=== PATIENT | female | born 1965 | race Hispanic/Latino ===

== ENCOUNTER 2016-08-27 18:00 | Emergency (ER) | payer OTHER ==
[~2016-08-27 18:00] MED LIST: Sodium Chloride 0.9% 1,000 ML BAG ONE; Sodium Chloride 0.9% 500 ML BAG ONE
[2016-08-27] MEDS ORDERED: Acetaminophen 500 MG TAB ONE ×2 (18:13→19:09)
[2016-08-27 18:35] LABS: Bilirubin Negative (Negative); Blood, Urine Negative (Negative); Clarity Hazy (Clear); Glucose, Urine (Dipstick) Negative (Negative); Leukocyte Negative (Negative); Nitrite Negative (Negative); Protein, Urine (Dipstick) 30 mg/dL (Neg-Trace); pH, Urine 8.5 (5.0-9.0)
[2016-08-27 18:36] LABS: Bacteria/HPF 1+ HPF (None Seen); RBC/HPF 0-3 HPF (0-3); WBC/HPF 0-3 HPF (0-3); Yeast-All Forms Rare HPF (None Seen)
[2016-08-27] MEDS ORDERED: Bupivacaine PF 0.5% 30 ML VIAL ONE (18:43)
[2016-08-27] MEDS ORDERED: Dexamethasone 10 MG/ML VIAL ONE (19:09)
[2016-08-27 19:20] LABS: #Lymphocytes 0.6 thou/uL (1.20-3.40); #Monocytes 0.5 thou/uL (0.11-0.59); #Neutrophils 4.2 thou/uL (1.40-6.50); %Basophils 0.8 % (0.0-1.0); %Eosinophils 0.3 % (0.0-10.0); %Lymphocytes 11.8 % (21.0-51.0); %Monocytes 9.2 % (0.0-10.0); %Neutrophils 77.9 % (42.0-75.0); Hemoglobin 14.2 g/dL (12.0-16.0); Mean Corpuscular HGB CONC 33.6 g/dL (32.0-36.0); Mean Corpuscular Hemoglobin 28.8 pg (27.0-31.0); Mean Corpuscular Volume 85.8 fl (81.0-99.0); Platelet Count 182 thou/uL (130-400); RBC Distribution Width 12.3 % (11.5-14.5); Red Blood Cell (RBC) Count 4.92 mill/uL (4.20-5.40); White Blood Cell (WBC) Count 5.3 thou/uL (4.8-10.8)
[2016-08-27 19:33] LABS: ALT (SGPT) 23 U/L (0-55); AST (SGOT) 18 U/L (5-34); Albumin 4.1 g/dL (3.5-5.0); Alkaline Phosphatase 95 U/L (40-150); Anion Gap 17 mmol/L (10-20); BUN (Urea Nitrogen) 9 mg/dL (7.0-18.7); Bilirubin, Total 0.5 mg/dL (0.2-1.2); Calc. Creatinine Clearance 0 mL/min (70-130); Calcium 9.3 mg/dL (7.8-10.44); Carbon Dioxide 23 mmol/L (22-29); Chloride 100 mmol/L (98-107); Estimated GFR-MDRD 81; Globulin 3.4 g/dL (2.4-3.5); Glucose 93 mg/dL (70-105); Potassium 3.9 mmol/L (3.5-5.1); Protein, Total 7.5 g/dL (6.0-8.3); Sodium 136 mmol/L (136-145)
[2016-08-27 19:43] LABS: BHCG - Serum NEGATIVE (NEGATIVE); Pregs Control Background? CLEAR/WHITE (CLR/WHITE); Pregs Control Bar Appear? YES (CONTROL BAR)
[2016-08-27] MEDS ORDERED: Promethazine HCl 25 MG/ML VIAL ONE (20:05)
[2016-08-27] MEDS ORDERED: cefTRIAXone\\ROCEPHIN 2 GM VIAL ONE (20:08)
[2016-08-27] MEDS ORDERED: Acyclovir 200 mg Capsule ONE (20:22)
--- NOTE | 2016-08-27 20:31 | PICIS ---
[facility] EMERGENCY RECORD TRIAGE (FriAug 27, 2016 18:12 MDEB) PATIENT: NAME: Cherrie Alejandre, AGE: 51, GENDER: female, : Sat 1965, TIME OF GREET: FriAug 27, 2016 18:01, PREFERRED LANGUAGE: Citizen Of [place], RACE: or , ETHNICITY: or , FALL RISK: NO, ECODE BILLING MAP: [facility], SSN: [id number], Zip Code: [address], KG WEIGHT: 92.99, PHONE: , , , PERSON ID: [id number], PCP: MD GUZMAN IMELDA. (FriAug 27, 2016 18:12 MDEB) TRIAGE NOTES: N/V/D FEVER HEADACHE. (FriAug 27, 2016 18:12 MDEB) COMPLAINT: ABDOMINAL PAIN,VOMITING. (FriAug 27, 2016 18:12 MDEB) ADMISSION: URGENCY: 3 Urgent, ADMISSION SOURCE: Home, TRANSPORT: Walk-in, BED: TRIAGE. (FriAug 27, 2016 18:12 MDEB) IMMUNIZATIONS: Flu vaccine up to date, Tetanus immunization up to date. (FriAug 27, 2016 18:12 MDEB) TRIAGE SCREENING: Patient denies suicidal ideation, Patient denies presence of domestic violence. (FriAug 27, 2016 18:12 MDEB) PROVIDERS: TRIAGE NURSE: Airam Good RN. (FriAug 27, 2016 18:12 MDEB) VITAL SIGNS: BP 138/85, Pulse 111, Resp 20, Temp 101.8, (Tympanic), Pain 9, O2 Sat 98, on Room Air, Time 08/27/2016 18:11. (18:11 MDEB) PREVIOUS VISIT ALLERGIES: No Known Drug Allergy. (FriAug 27, 2016 18:12 MDEB) KNOWN ALLERGIES ADVERSE RX TO ULTRAM VOMITS (Unconfirmed) ALLERGIES: (Unconfirmed) FOOD ALLERGIES: (Unconfirmed) LATEX ALLERGY? (Unconfirmed) No Known Allergies (Unconfirmed) No Known Drug Allergies No Known Drug Allergy (Unconfirmed) CURRENT MEDICATIONS No recorded medications VITAL SIGNS VITAL SIGNS: BP: 138/85, Pulse: 111, Resp: 20, Temp: 101.8 (Tympanic), Pain: 9, O2 sat: 98 on Room Air, Time: 08/27/2016 18:11. (18:11 MDEB) BP: 132/82, Pulse: 87, Resp: 22, Temp: 99.3, Pain: 0, O2 sat: 97 on RA, Time: 08/27/2016 20:50. (20:50 MDEB) BP: 116/71, Pulse: 83, Resp: 20, Temp: 99.3, Pain: 0, O2 sat: 97 on RA, Time: 08/27/2016 21:15. (21:15 MDEB) NURSING PROCEDURE: COMMUNICATIONS COMMUNICATIONS: Other notification, Name MARTINEZ - TRANSFER &a-1R&a+25V*p+0X*q8380M*c202B*c15G*c2P*p-0X&a-25V&a+1R Name: Cherrie Alejandre : 1965 F51 MedRec: [id number] AcctNum: [id number] Prepared: Chey Aug 27, 2016 22:03 by Interface Page 1 of 14 pMD [facility] EMERGENCY [facility]ORD [facility], contacted at [phone], Reason for notification TRANSFER. (20:10 [facility]) Ambulance service, contacted at [phone], Name of provider CONSTANTINO, Person contacted [facility], requested for transfer to another facility, by advanced life support transport, Estimated time of arrival 30 TO 40 MIN, SENDING TRUCK FROM [facility]. (20:23 [facility]) Notes: TRANSFER ACCEPTANCE FROM DR. RAMIRES AND DARRELL HARRIS. (20:20 [place]) NURSING PROCEDURE: LUMBAR PUNCTURE (20:06 ABUS) PATIENT IDENTIFIER: Patient actively involved in identification process, Patient's identity verified by patient stating name, Patient's identity verified by hospital ID bracelet. TIMEOUT: Prior to procedure, correct patient verified by, hospital identification bracelet, Correct procedure verified, Correct site verified, Correct equipment utilized, Physician performing procedure Dr. Worley. LUMBAR PUNCTURE: Lumbar puncture indicated for severe headache, Lumbar puncture indicated to rule out meningitis, Lumbar puncture indicated to rule out bleed, Lumbar puncture performed, by Dr. Worley, cerebral spinal fluid obtained in two attempts, Approximate amount of fluid removed (ml) 6. FOLLOW-UP: After procedure, distal motor function intact, After procedure, distal sensation intact. NOTES: Patient tolerated procedure well. NURSING PROCEDURE: NURSE NOTES (20:50 MDEB) NURSES NOTES: Notes: PT RESTING WITH EYES CLOSED MAKING SONOROUS NOISE. VITAL SIGNS: BP: 132, / 82, Pulse: 87, Resp: 22, Temp: 99.3, Pain: 0, O2 sat: 97, on: RA. NURSING PROCEDURE: TRANSFER (21:15 MDEB) TRANSFER: Reason for transfer need for specialized care, Diagnosis: R/O MENINGITIS NAUSEA WITH VOMTING, Accepting institution: [facility], Accepting physician: IKE, Referring physician: WENDY, Transported by urgent ambulance, accompanied by emergency medical services personnel, Report called to receiving facility, RADHA ARAYA, Provided opportunity to answer questions, Summary of Care printed, Copy of patient record prepared for receiving facility, Copy of diagnostic studies, Status of patient's valuables documented on chart, Medication reconciliation form prepared and sent to receiving facility, Family member contacted, DAUGHTER HERE AT TIME OF TRANSFER. BELONGINGS: Belongings remain with patient, Valuables remain with patient. NOTES: Emotional support needed and given, Patient tolerated procedure well. VITAL SIGNS: BP: 116, / 71, Pulse: 83, Resp: 20, Temp: 99.3, Pain: 0, O2 sat: 97, on: RA. &a-1R&a+25V*p+0X*i9752F*c202B*c15G*c2P*p-0X&a-25V&a+1R Name: Cherrie Alejandre : 1965 F51 MedRec: [id number] AcctNum: [id number] Prepared: FriAug 27, 2016 22:03 by Interface Page 2 of 14 pMD [facility] EMERGENCY RECORD ORDER DETAILS Order Name: CBC with Differential, Status: Active, Time: 18:34 08/27/2016, User: DOROTA, - Ordered for: MD Worley Anthony, - Entered by: MD Worley Anthony - Chey Aug 27, 2016 18:34, - Quantity: 1, Order Name: Cell Count w/ Diff, Add set, Status: Active, Time: 18:34 08/27/2016, User: ABUS, - Ordered for: MD Worley Anthony, - Entered by: MD Worley Anthony - Tue Aug 27, 2016 18:34, - Quantity: 1, Order Name: Cell Count w/ Differential, Status: Active, Time: 18:34 08/27/2016, User: ABUS, - Ordered for: MD Worley Anthony, - Entered by: MD Worley Anthony - Tue Aug 27, 2016 18:34, - Quantity: 1, Order Name: chart element #1, Status: Active, Time: 20:06 08/27/2016, User: System, - Ordered for: MD Worley Anthony, - Entered by: MD Worley Anthony - Tue Aug 27, 2016 20:06, - Quantity: 1, Order Name: chart element #4, Status: Active, Time: 20:06 08/27/2016, User: System, - Ordered for: MD Worley Anthony, - Entered by: MD Worley Anthony - Tue Aug 27, 2016 20:06, - Quantity: 1, Order Name: Comprehensive Metabolic Panel, Status: Active, Time: 18:34 08/27/2016, User: ABUS, - Ordered for: MD Worley Anthony, - Entered by: MD Worley Anthony - Tue Aug 27, 2016 18:34, - Quantity: 1, Order Name: CSF, Chem Profile (Glu & TPro), Status: Active, Time: 18:34 08/27/2016, User: ABUS, - Ordered for: MD Worley Anthony, - Entered by: MD Worley Anthony - Tue Aug 27, 2016 18:34, - Quantity: 1, Order Name: CT Brain WO Con, Status: Active, Time: 18:34 08/27/2016, User: ABUS, - Ordered for: MD Worley Anthony, - Entered by: MD Worley Anthony - Tue Aug 27, 2016 18:34, - Quantity: 1, Order Name: Culture & GS, Body Fluid, Status: Active, Time: 18:34 08/27/2016, User: ABUS, - Ordered for: MD Worley Anthony, - Entered by: MD Worley Anthony - Tue Aug 27, 2016 18:34, - Quantity: 1, Order Name: Influenza A&B Ag Screen, Status: Active, Time: 18:19 08/27/2016, User: BOY, - Ordered for: MD Worley Anthony, &a-1R&a+25V*p+0X*q6782D*c202B*c15G*c2P*p-0X&a-25V&a+1R Name: Cherrie Alejandre : 1965 F51 MedRec: [id number] AcctNum: [id number] Prepared: FriAug 27, 2016 22:03 by Interface Page 3 of 14 D [facility] EMERGENCY RECORD - Entered by: RADHA Good, Airam Guerrier Aug 27, 2016 18:19, - Quantity: 1, Order Name: Test, Serum (BHCG), Status: Active, Time: 18:35 08/27/2016, User: DOROTA, - Ordered for: MD Worley Anthony, - Entered by: MD Worley Anthony - Tue Aug 27, 2016 18:35, - Quantity: 1, Order Name: SALINE LOCK, Status: Done, Time: 19:08 08/27/2016, User: BOY, - Ordered for: MD Worley Anthony, - Entered by: MD Worley Anthony - Tue Aug 27, 2016 18:34, - Quantity: 1, Order Name: Urinalysis w/ Rflx Microscopic, Status: Active, Time: 18:19 08/27/2016, User: BOY, - Ordered for: MD Worley Anthony, - Entered by: RADHA Good, Airam Guerrier Aug 27, 2016 18:19, - Quantity: 1. MEDICATION ADMINISTRATION SUMMARY Drug Name: acyclovir sodium, Dose Ordered: 1 mg, Route: IV Piggy Back, Status: Canceled, Time: 20:53 08/27/2016, Drug Name: vancomycin intravenous, Dose Ordered: 2 g, Route: IV Piggy Back, Status: Given, Time: 20:46 08/27/2016, Drug Name: *acyclovir oral, Dose Ordered: 1 g, Route: Oral, Status: Given, Time: 20:20 08/27/2016, Drug Name: morphine (PF) injection, Dose Ordered: 4 mg, Route: IV Push, Status: Given, Time: 20:15 08/27/2016, Drug Name: Rocephin intravenous, Dose Ordered: 2 g, Route: IV Push, Status: Given, Time: 20:10 08/27/2016, Drug Name: *sodium chloride 0.9 % intravenous, Dose Ordered: 1 L, Route: IV Fluid Infusion, Status: Given, Time: 20:06 08/27/2016, Drug Name: promethazine injection, Dose Ordered: 25 mg, Route: IV Piggy Back, Status: Given, Time: 20:05 08/27/2016, Drug Name: acetaminophen oral, Dose Ordered: 1000 mg, Route: Oral, Status: Given, Time: 19:10 08/27/2016, Drug Name: dexamethasone sodium phosphate intraveno, Dose Ordered: 10 mg, Route: IV Push, Status: Given, Time: 19:10 08/27/2016, Drug Name: lidocaine (PF) injection, Dose Ordered: 10 mL, Route: Intradermal, Status: Given, Time: 18:40 08/27/2016, *Additional information available in notes, Detailed record available in Medication Service section. MEDICATION SERVICE acetaminophen oral: Order: acetaminophen oral (acetaminophen) - Dose: 1000 mg : Oral Schedule: Now Ordered by: Girish Worley MD Entered by: Girish Worley MD FriAug 27, 2016 18:41 , Acknowledged by: Airam Good RN FriAug 27, 2016 19:08 &a-1R&a+25V*p+0X*s8244G*c202B*c15G*c2P*p-0X&a-25V&a+1R Name: Cherrie Alejandre : 1965 F51 MedRec: [id number] AcctNum: [id number] Prepared: FriAug 27, 2016 22:03 by Interface Page 4 of 14 pMD [facility] EMERGENCY RECORD Documented as given by: Airam Good RN FriAug 27, 2016 19:10 Patient, Medication, Dose, Route and Time verified prior to administration. Amount given: 1000 MG, Site: Medication administered P.O., Correct patient, time, route, dose and medication confirmed prior to administration, Patient advised of actions and side-effects prior to administration, Allergies confirmed and medications reviewed prior to administration, Patient in position of comfort, Side rails up, Cart in lowest position, Family at bedside. acyclovir oral: Order: acyclovir oral (acyclovir) - Dose: 1 g : Oral Schedule: Now Notes: give oral since we do not have IV Ordered by: Girish Worley MD Entered by: Girish Worley MD FriAug 27, 2016 20:47 Documented as given by: Airam Good RN FriAug 27, 2016 20:20 Patient, Medication, Dose, Route and Time verified prior to administration. Amount given: 1 GR, Site: Medication administered P.O., Correct patient, time, route, dose and medication confirmed prior to administration, Patient advised of actions and side-effects prior to administration, Allergies confirmed and medications reviewed prior to administration, Patient in position of comfort, Side rails up, Cart in lowest position, Family at bedside. acyclovir sodium: Order: acyclovir sodium - Dose: 1 mg : IV Piggy Back Schedule: Now Ordered by: Girish Worley MD Entered by: Girish Worley MD FriAug 27, 2016 18:40 . (CANCELED) acyclovir sodium: Originally ordered FriAug 27, 2016 18:40 Cancel reason: Change in medication plan:NOT AVAILABLE - ORDERED PO. (20:53 MDEB) dexamethasone sodium phosphate intravenous: Order: dexamethasone sodium phosphate intravenous (dexamethasone sod phosphate) - Dose: 10 mg : IV Push Schedule: Now Ordered by: Girish Worley MD Entered by: Girish Worley MD FriAug 27, 2016 18:40 , Acknowledged by: Airam Good RN FriAug 27, 2016 19:08 Documented as given by: Airma Good RN FriAug 27, 2016 19:10 Patient, Medication, Dose, Route and Time verified prior to administration. Amount given: 10 MG, IV SITE #1 IVP, initial medication, Slowly, Catheter placement confirmed via flush prior to administration, IV site without signs or symptoms of infiltration during medication administration, No swelling during administration, No drainage during administration, IV flushed after administration, Correct patient, time, route, dose and medication confirmed prior to administration, Patient advised of actions and side-effects prior to administration, &a-1R&a+25V*p+0X*w7763U*c202B*c15G*c2P*p-0X&a-25V&a+1R Name: Cherrie Alejandre : 1965 F51 MedRec: [id number] AcctNum: [id number] Prepared: FriAug 27, 2016 22:03 by Interface Page 5 of 14 pMD [facility] EMERGENCY RECORD Allergies confirmed and medications reviewed prior to administration, Patient in position of comfort, Side rails up, Cart in lowest position, Family at bedside. lidocaine (PF) injection: Order: lidocaine (PF) injection (lidocaine HCl/preservative free) - Dose: 10 mL : Intradermal Schedule: Now Ordered by: Girish Worley MD Entered by: Girish Worley MD FriAug 27, 2016 18:36 Documented as given by: Airam Good RN FriAug 27, 2016 18:40 Patient, Medication, Dose, Route and Time verified prior to administration. Amount given: 10 ML, Correct patient, time, route, dose and medication confirmed prior to administration, Patient advised of actions and side-effects prior to administration, Allergies confirmed and medications reviewed prior to administration, Administered by DR WORLEY, Patient in position of comfort, Side rails up, Cart in lowest position. morphine (PF) injection: Order: morphine (PF) injection (morphine sulfate/preservative free) - Dose: 4 mg : IV Push Schedule: Now Ordered by: Girish Worley MD Entered by: Girish Worley MD FriAug 27, 2016 20:49 , Acknowledged by: Jose Cedeno RN FriAug 27, 2016 20:59 Documented as given by: Jose Cedeno RN FriAug 27, 2016 20:15 Patient, Medication, Dose, Route and Time verified prior to administration. Amount given: 4mg, IV SITE #1 IVP, initial medication, Slowly, Awake and alert- acceptable, Catheter placement confirmed via flush prior to administration, IV site without signs or symptoms of infiltration during medication administration, No swelling during administration, No drainage during administration, IV flushed after administration, Correct patient, time, route, dose and medication confirmed prior to administration, Patient advised of actions and side-effects prior to administration, Allergies confirmed and medications reviewed prior to administration, Patient in position of comfort, Side rails up, Cart in lowest position, Family at bedside. promethazine injection: Order: promethazine injection (promethazine HCl) - Dose: 25 mg : IV Piggy Back Schedule: Now Ordered by: Girish Worley MD Entered by: Girish Worley MD FriAug 27, 2016 20:05 , Acknowledged by: Jose Cedeno RN FriAug 27, 2016 20:14 Documented as given by: Jose Cedeno RN FriAug 27, 2016 20:05 Patient, Medication, Dose, Route and Time verified prior to administration. Amount given: 25mg, IV SITE #1 IVPB or drip, initial infusion, IVPB mixed in: 1000ml, Fluid: 0.9NS, via primary tubing, at 1000 ml/hr, Awake and alert- acceptable, Catheter placement confirmed via flush prior to administration, IV site without signs or symptoms of &a-1R&a+25V*p+0X*d0197W*c202B*c15G*c2P*p-0X&a-25V&a+1R Name: Cherrie Alejandre : 1965 F51 MedRec: [id number] AcctNum: [id number] Prepared: FriAug 27, 2016 22:03 by Interface Page 6 of 14 pMD [facility] EMERGENCY RECORD infiltration during medication administration, No swelling during administration, No drainage during administration, IV flushed after administration, Correct patient, time, route, dose and medication confirmed prior to administration, Patient advised of actions and side-effects prior to administration, Allergies confirmed and medications reviewed prior to administration, Patient in position of comfort, Side rails up, Cart in lowest position, Family at bedside. Rocephin intravenous: Order: Rocephin intravenous (ceftriaxone sodium) - Dose: 2 g : IV Push Schedule: Now Ordered by: Girish Worley MD Entered by: Girish Worley MD FriAug 27, 2016 18:38 , Acknowledged by: Airam Good RN FriAug 27, 2016 20:07 Documented as given by: Airam Good RN FriAug 27, 2016 20:10 Patient, Medication, Dose, Route and Time verified prior to administration. Amount given: 2 G, IV SITE #1 IVP, initial medication, Slowly, Catheter placement confirmed via flush prior to administration, IV site without signs or symptoms of infiltration during medication administration, No swelling during administration, No drainage during administration, IV flushed after administration, Correct patient, time, route, dose and medication confirmed prior to administration, Patient advised of actions and side-effects prior to administration, Allergies confirmed and medications reviewed prior to administration, Patient in position of comfort, Side rails up, Cart in lowest position, Family at bedside. sodium chloride 0.9 % intravenous: Order: sodium chloride 0.9 % intravenous (0.9 % sodium chloride) - Dose: 1 L : IV Fluid Infusion Schedule: Now Notes: (Bolus) Ordered by: Girish Worley MD Entered by: Girish Worley MD FriAug 27, 2016 20:04 Documented as given by: Airam Good RN FriAug 27, 2016 20:06 Patient, Medication, Dose, Route and Time verified prior to administration. Amount given: 1 L, IV SITE #1 IV fluids established for hydration, IV SITE #1 into right hand, IV SITE #1 bolus of 1000 ml established, IV SITE #1 Rate of bolus, wide open, via primary tubing, Catheter placement confirmed via flush prior to administration, IV site without signs or symptoms of infiltration during medication administration, No swelling during administration, No drainage during administration, IV flushed after administration, Correct patient, time, route, dose and medication confirmed prior to administration, Patient advised of actions and side-effects prior to administration, Allergies confirmed and medications reviewed prior to administration, Patient in position of comfort, Side rails up, Cart in lowest position, Family at bedside. : Follow Up : Response assessment performed, No signs or symptoms of allergic reaction noted, No change in symptoms, _IV SITE &a-1R&a+25V*p+0X*i7006Y*c202B*c15G*c2P*p-0X&a-25V&a+1R Name: Cherrie Alejandre : 1965 F51 MedRec: [id number] AcctNum: [id number] Prepared: FriAug 27, 2016 22:03 by Interface Page 7 of 14 pMD [facility] EMERGENCY RECORD #1:_, IV fluid infusion discontinued, on FriAug 27, 2016 20:45, 40 minutes, ., Total amount infused: 1000ml, IV Line flushed after administration, Advised not to ambulate without assistance, Patient in position of comfort, Side rails up, Cart in lowest position, Family at bedside. (20:45 MCRS) vancomycin intravenous: Order: vancomycin intravenous (vancomycin HCl) - Dose: 2 g : IV Piggy Back Schedule: Now Ordered by: Girish Worley MD Entered by: Girish Worley MD FriAug 27, 2016 18:38 , Acknowledged by: Airam Good RN FriAug 27, 2016 20:26 Documented as given by: Airam Good RN FriAug 27, 2016 20:46 Patient, Medication, Dose, Route and Time verified prior to administration. Amount given: 2 GR, IV SITE #1 IVPB or drip, initial infusion, IVPB mixed in: 500ml, Fluid: 0.9NS, via primary tubing, on an IV pump, Catheter placement confirmed via flush prior to administration, IV site without signs or symptoms of infiltration during medication administration, No swelling during administration, No drainage during administration, IV flushed after administration, Correct patient, time, route, dose and medication confirmed prior to administration, Patient advised of actions and side-effects prior to administration, Allergies confirmed and medications reviewed prior to administration, Patient in position of comfort, Side rails up, Cart in lowest position, Family at bedside. HPI HEADACHE (19:11 ABUS) CHIEF COMPLAINT: Patient presents for evaluation of headache. HISTORIAN: History provided by patient, 51 yr old F with FRAGA, neck pain and stiffness, fever, N/V that has never happened before. Started around 12 pm today . No apparent sick contacts or recent travel, rash. LOCATION: Symptoms are generalized. QUALITY: Pain is dull in nature, described as aching. SEVERITY: Currently symptoms are severe, Maximum severity of pain rated as 8/10. TIME COURSE: Gradual onset of symptoms, Symptoms are worsening, Symptoms are constant. ASSOCIATED WITH FEMALE: No associated chills, No associated fever, Associated with neck pain, No associated tingling, No associated numbness. EXACERBATED BY: Patient's condition exacerbated by nothing. RELIEVED BY: Patient's condition relieved by nothing. ROS (19:14 ABUS) CONSTITUTIONAL: Historian denies chills, denies fatigue, reports fever, reports malaise. EYES: Negative eye review of systems, Historian denies eye pain, denies vision changes. ENT: Negative ears, nose, throat review of systems, Historian denies rhinorrhea, denies sore throat, denies voice changes. &a-1R&a+25V*p+0X*p6398Y*c202B*c15G*c2P*p-0X&a-25V&a+1R Name: Cherrie Alejandre : 1965 F51 MedRec: [id number] AcctNum: [id number] Prepared: FriAug 27, 2016 22:03 by Interface Page 8 of 14 pMD [facility] EMERGENCY RECORD CARDIOVASCULAR: Negative cardiovascular review of systems, Historian denies chest pain, denies palpitations. RESPIRATORY: Negative respiratory review of systems, Historian denies cough, denies shortness of breath. GI: Historian reports nausea, reports vomiting. GENITOURINARY FEMALE: Negative genitourinary review of systems, Historian denies dysuria, denies frequency. MUSCULOSKELETAL: Negative musculoskeletal review of systems, Historian denies back pain, denies fall, denies injury. SKIN: Negative skin review of systems, Historian denies rash, denies skin changes. NEUROLOGIC: Historian reports headache, denies mental status changes, denies paralysis, denies paresthesias. HEMO/LYMPHATIC: Normal hematologic/lymphatic system review, Historian denies abnormal blood clotting. ALLERGIC/IMMUNOLOGIC: Normal allergy/immunologic system review, Historian denies frequent infections. PAST MEDICAL HISTORY (FriAug 27, 2016 18:12 MDEB) MEDICAL HISTORY: SLEEP APNEA, RA, DIVERTICULITIS, asthma, Notes: fibromyalgia. VERIFIED 07/29/16. FEMALE SURGICAL HISTORY: cholecystectomy, x 2. VERIFED 07/29/16. PSYCHIATRIC HISTORY: Psychiatric history includes, anxiety, none. SOCIAL HISTORY: Patient denies alcohol use, Patient denies drug use, Patient has no smoking history, Patient denies alcohol use, Patient denies drug use, Patient has no smoking history, Lives at home, with family. PHYSICAL EXAM (19:14 ABUS) CONSTITUTIONAL: Vital Signs Reviewed, Patient febrile, temperature of 101.8, Pulse, tachycardic, Blood pressure normal, Respiratory rate normal, Patient appears, uncomfortable, Patient appears, in moderate pain distress, Patient alert and oriented to person, place and time. HEAD: Head exam normal, Head exam included findings of head atraumatic, normocephalic. EYES: Eye exam normal, Eye exam included findings of eyelids normal to inspection, Pupils equally round and reactive to light, Extraocular muscles intact, no nystagmus. ENT: ENT exam normal, Ear exam normal, external ear normal, tympanic membranes normal, no bleeding, Pharynx exam normal, Uvula exam normal, Tonsil exam normal, Mouth exam normal, mucous membranes moist, teeth normal. NECK: Neck exam included findings of normal range of motion, Trachea midline, Thyroid normal, neck stiffness. RESPIRATORY CHEST: Respiratory and chest exam normal, Respiratory &a-1R&a+25V*p+0X*l9455V*c202B*c15G*c2P*p-0X&a-25V&a+1R Name: Cherrie Aljeandre : 1965 F51 MedRec: [id number] AcctNum: [id number] Prepared: Chey Aug 27, 2016 22:03 by Interface Page 9 of 14 D [facility] EMERGENCY RECORD exam included findings of no respiratory distress, Breath sounds clear. CARDIOVASCULAR: Cardiovascular assessment normal, Cardiovascular exam included findings of heart rate regular rate and rhythm, Heart sounds normal. ABDOMEN FEMALE: Abdominal exam included findings of abdomen nontender, Bowel sounds normal, no distension, no mass, no pulsatile masses, no peritoneal signs, no rigidity, no guarding, no rebound, Rovsing's sign absent. BACK: Back exam normal, Back exam included findings of normal inspection, range of motion normal, no tenderness. UPPER EXTREMITY: Upper extremity exam normal, Upper extremity exam included findings of inspection normal, Range of motion normal, Motor strength normal, Sensation intact, Radial pulse normal. LOWER EXTREMITY: Lower extremity exam normal, Lower extremity exam included findings of inspection normal, Range of motion normal, Motor strength normal, Sensation intact, Posterior tibial pulse normal, Pedal pulse normal. NEURO: Neuro exam normal, Neuro exam findings include patient oriented to person, place and time, Speech normal, Gait normal, Cranial nerves intact, no focal motor deficits, no focal sensory deficits. SKIN: Skin exam normal, Skin exam included findings of skin warm, dry, and normal in color, no rash. PSYCHIATRIC: Psychiatric exam normal, Normal affect. EVENTS TRANSFER: Triage to Emergency Triage. (FriAug 27, 2016 18:12 MDEB) Emergency Triage to Main ED -03. (18:18 MDEB) Removed from Emergency Main ED -03. (21:47 MDEB) DOCTOR NOTES (19:18 ABUS) TEXT: 51 yr old F with FRAGA, neck pain and stiffness, fever, N/V that has never happened before. Started around 12 pm today. EXAM: Looks uncomfortable, tachypnea, tachycardic, febrile. No apparent neuro deficits. DDX: Meningitis, encephalitis, SAH, complex migraine, migraine, influenza, PLAN: IV, IVF, vanc, rocpehin, acyclovir, dex, LP, CT head. IMAGING: CT Imaging negative. PROCEDURE: LP done and CSF prepared to ship to [place] for analysis. DISPO: Most concerned for possible meningitis, but will also r/o SAH. Admit with empiric rx for possible meningitis. Report called to Emily who relayed the info to Dr Mendoza who accepted the transfer for r/o of meningitis. CSF tubes to be sent with patient in transfer. Abx started. PROBLEM LIST No recorded problems &a-1R&a+25V*p+0X*t1792Z*c202B*c15G*c2P*p-0X&a-25V&a+1R Name: Cherrie Alejandre : 1965 F51 MedRec: [id number] AcctNum: [id number] Prepared: FriAug 27, 2016 22:03 by Interface Page 10 of 14 pMD [facility] EMERGENCY RECORD DIAGNOSIS (20:23 ABUS) FINAL: PRIMARY: Meningitis (Suspected), ADDITIONAL: Nausea with vomiting. DISPOSITION PATIENT: Disposition Type: Transfer, Disposition: Transfer to [facility], Disposition Transport: Ambulance, Condition: Fair. (20:23 ABUS) Patient left the department. (21:47 MDEB) PRESCRIPTION No recorded prescriptions IMAGING CONSENTS: Image captured from scanner. (19:54 ADEA) Page 2 added. Image captured from scanner. (19:54 ADEA) *MEMORANDUM OF TRANSFER: Image captured from scanner. (20:35 ADEA) TRANSFER CONSENT: Image captured from scanner. (20:35 ADEA) EMS TRANSPORT ORDERS: Image captured from scanner. (20:36 ADEA) *SUPPLY CHARGE SHEET: Image captured from scanner. (21:37 ADEA) TRANSFER WORKSHEET: Image captured from scanner. (21:38 ADEA) Page 2 added. Image captured from scanner. (21:39 ADEA) ADMIN DIGITAL SIGNATURE: MD Worley Anthony. (20:23 ABUS) MD Worley Anthony. (20:24 ABUS) MD Worley Anthony. (20:49 ABUS) RADHA Cole Andrea. (21:15 ADEA) RADHA Cole Andrea. (21:15 ADEA) MD Worley Anthony. (21:51 ABUS) RESULTS LABORATORY: CBC with Differential Collection DT: FriAug 27, 2016 19:12, White Blood Cell (WBC) Count 5.3 thou/uL, Range (4.8-10.8), Red Blood Cell (RBC) Count 4.92 mill/uL, Range (4.20-5.40), Hemoglobin 14.2 g/dL, Range (12.0-16.0), Hematocrit 42.2 %, Range (36.0-47.0), Mean Corpuscular Volume 85.8 fl, Range (81.0-99.0), Mean Corpuscular Hemoglobin 28.8 pg, Range (27.0-31.0), Mean Corpuscular HGB CONC 33.6 g/dL, Range (32.0-36.0), RBC Distribution Width 12.3 %, Range (11.5-14.5), Platelet Count 182 thou/uL, Range (130-400), Mean Platelet Volume 8.0 fL, Range (7.4-10.4), *%Neutrophils 77.9 - H %, Range (42.0-75.0), *%Lymphocytes 11.8 - L %, Range (21.0-51.0), %Monocytes 9.2 %, Range (0.0-10.0), %Eosinophils 0.3 %, Range (0.0-10.0), &a-1R&a+25V*p+0X*k5404A*c202B*c15G*c2P*p-0X&a-25V&a+1R Name: Cherrie Alejandre : 1965 F51 MedRec: [id number] AcctNum: [id number] Prepared: FriAug 27, 2016 22:03 by Interface Page 11 of 14 pMD [facility] EMERGENCY RECORD %Basophils 0.8 %, Range (0.0-1.0), #Neutrophils 4.2 thou/uL, Range (1.40-6.50), *#Lymphocytes 0.6 - L thou/uL, Range (1.20-3.40), #Monocytes 0.5 thou/uL, Range (0.11-0.59), #Eosinphils 0.0 thou/uL, Range (0.0-0.7), #Basophils 0.0 thou/uL, Range (0.0-0.2). (19:25 MD) MICROBIOLOGY: Influenza A&B Ag Screen: [id number] Collection DT: FriAug 27, 2016 18:28, See comment below , @ ER ROOM#: [id number] Source: Nasal swab Spec Desc: , Influenza A Antigen: NEGATIVE for the , presence of , INFLUENZA A Antigen , Influenza B Antigen: NEGATIVE for the , presence of , INFLUENZA B Antigen , The rapid Flu A&B test can distinguish between influenza A , Influenza A&B Ag Screen See comment below , and B viruses, but it does not differentiate influenza , Influenza A&B Ag Screen See comment below , subtypes. , Influenza A&B Ag Screen See comment below , Influenza A&B Ag Screen See comment below , Influenza A&B Ag Screen See comment below , Influenza A&B Ag Screen See comment below , characteristics of this device with human specimens infected , Influenza A&B Ag Screen See comment below , with the 2008 H1N1 influenza virus have not been , Influenza A&B Ag Screen See comment below , established. For example: this test cannot distinguish , Influenza A&B Ag Screen See comment below , influenza infections caused by novel H1N1 influenza A , Influenza A&B Ag Screen See comment below , viruses versus seasonal influenza A viruses. , Influenza A&B Ag Screen See comment below , , Influenza A&B Ag Screen See comment below , A negative result does not exclude influenza virus , Influenza A&B Ag Screen See comment below , infection; therefore, if more conclusive testing is desired, , Influenza A&B Ag Screen See comment below , follow up confirmatory testing is warranted., Influenza A&B Ag Screen See comment below . (19:25 MDEB) LABORATORY: Urine Microscopic Collection DT: FriAug 27, 2016 18:27, RBC/HPF 0-3 HPF, Range (0-3), WBC/HPF 0-3 HPF, Range (0-3), *Squamous Epithelial 7-10 - H HPF, Range (0-3), *Bacteria/HPF 1+ - H HPF, Range (None Seen), Yeast-All Forms Rare HPF, Range (None Seen). (19:25 MDEB) Urinalysis w/ Rflx Microscopic Collection DT: FriAug 27, 2016 18:27, &a-1R&a+25V*p+0X*u8429D*c202B*c15G*c2P*p-0X&a-25V&a+1R Name: Cherrie Alejandre : 1965 F51 MedRec: [id number] AcctNum: [id number] Prepared: FriAug 27, 2016 22:03 by Interface Page 12 of 14 pMD [facility] EMERGENCY RECORD Color Yellow , Range (Yellow), Clarity Hazy , Range (Clear), Specific Butler, Urine 1.020 , Range (1.005-1.030), pH, Urine 8.5 , Range (5.0-9.0), Leukocyte Negative , Range (Negative), Nitrite Negative , Range (Negative), *Protein, Urine (Dipstick) 30 - H mg/dL, Range (Neg-Trace), Glucose, Urine (Dipstick) Negative mg/dL, Range (Negative), *Ketone, Urine 15 - H mg/dL, Range (Negative), *Urobilinogen 2.0 - H mg/dL, Range (0.2-1.0), Bilirubin Negative , Range (Negative), Blood, Urine Negative , Range (Negative). (19:25 MDEB) Test, Serum (BHCG) Collection DT: FriAug 27, 2016 19:12, BHCG - Serum NEGATIVE , Range (NEGATIVE), Method of sensitivity- Indeterminant: results should be repeated, after 48 hours. Positive: results may be detected as early as 4-5 days before a first missed menses. Elimination of BHCG-, Elimination following first trimester D&C: 29-44 Days , Elimination following term : 8-24 Days . (20:14 ABUS) Comprehensive Metabolic Panel Collection DT: FriAug 27, 2016 19:12, Sodium 136 mmol/L, Range (136-145), Potassium 3.9 mmol/L, Range (3.5-5.1), Chloride 100 mmol/L, Range (98-107), Carbon Dioxide 23 mmol/L, Range (22-29), Anion Gap 17 mmol/L, Range (10-20), BUN (Urea Nitrogen) 9 mg/dL, Range (7.0-18.7), Creatinine 0.76 mg/dL, Range (0.6-1.1), Estimated GFR-MDRD 81 , Reference Range for Estimated GFR: Greater than 90, mL/min/1.73 m2 NOTE: The MDRD equation has not been validated for use, with the elderly (over 70 years of age), women, patients with, serious comorbid condition or persons with extremes of body size, muscle, mass, or nutritional status. , Glucose 93 mg/dL, Range (70-105), Calcium 9.3 mg/dL, Range (7.8-10.44), Bilirubin, Total 0.5 mg/dL, Range (0.2-1.2), Protein, Total 7.5 g/dL, Range (6.0-8.3), NOTE: Plasma values are generally 0.3 to 0.5 g/dL higher than serum values, due to the presence of fibrinogen. , Albumin 4.1 g/dL, Range (3.5-5.0), Globulin 3.4 g/dL, Range (2.4-3.5), Alb/Glob Ratio 1.2 g/dL, Range (1.2-2.2), Alkaline Phosphatase 95 U/L, Range (40-150), AST (SGOT) 18 U/L, Range (5-34), &a-1R&a+25V*p+0X*z5894D*c202B*c15G*c2P*p-0X&a-25V&a+1R Name: Cherrie Alejandre : 1965 F51 MedRec: [id number] AcctNum: [id number] Prepared: FriAug 27, 2016 22:03 by Interface Page 13 of 14 pMD [facility] EMERGENCY RECORD ALT (SGPT) 23 U/L, Range (0-55). (20:14 ABUS) Evans: DOROTA=MD Wendy, Girish VELAZQUEZ=RADHA Cole, Jeff ZARATE=RADHA Cedeno, Jose BRUNSON=RADHA Good, Airam &a-1R&a+25V*p+0X*i4067B*c202B*c15G*c2P*p-0X&a-25V&a+1R Name: Cherrie Alejandre : 1965 F51 MedRec: [id number] AcctNum: [id number] Prepared: FriAug 27, 2016 22:03 by Interface Page 14 of 14 pMD MTDD
--- NOTE | 2016-08-27 22:32 | CT ---
CT BRAIN 08/27/16 PROVIDED CLINICAL HISTORY: Nausea and vomiting. FINDINGS: Comparison is made with a study dated 12/29/07. There is prominence of the lateral ventricles. The temporal horns do not appear dilated. The third v entricle appears mildly prominent. The fourth ventricle is nondilated. The ventricular system appear s unchanged in size and morphology as compared to the prior examination. There is no evidence for in tracranial hemorrhage or mass effect. The extracranial soft tissues and osseous structures demonstra te an unremarkable CT appearance. IMPRESSION: Prominence of the ventricular system which appears not significantly changed as compared to the 12/28 study. The etiology and significant of this finding is uncertain. A chronic, compensated communi cating hydrocephalus could be considered. POS: LUCRETIA
== END 2016-08-27 21:15 | disposition short-term general hospital (02) ==
LOC: MADERS 18:00
DX: R51 Headache (principal); R11.2 Nausea with vomiting, unspecified; J45.909 Unspecified asthma, uncomplicated; F41.9 Anxiety disorder, unspecified; M06.9 Rheumatoid arthritis, unspecified
CPT/HCPCS: 36415; 62270; 70450; 80053; 81003; 81015; 84703; 85025; 96365; 96367; 96375; J0696; J1100; J2270; J2550; J3370; J7050; S0020

== ENCOUNTER 2016-09-09 10:19 | Emergency (ER) | payer OTHER ==
--- NOTE | 2016-09-09 13:19 | PICIS ---
[facility] EMERGENCY RECORD TRIAGE (10:32 SFRE) TRIAGE NOTES: RASH TO RIGHT SIDE, POSSIBLY SHINGLES. (10:32 SFRE) PATIENT: NAME: Cherrie Alejandre, AGE: 51, GENDER: female, : Sat 1965, TIME OF GREET: Mon Sep 09, 2016 10:20, PREFERRED LANGUAGE: Vietnamese, ETHNICITY: or , FALL RISK: NO, ECODE BILLING MAP: [facility], SSN: [id number], Zip Code: [address], KG WEIGHT: 94.80, PHONE: , , , PERSON ID: [id number], PCP: MD THOMAS, MICHAEL. (10:32 SFRE) COMPLAINT: RIGHT SIDE PAIN. (10:32 SFRE) ADMISSION: URGENCY: 3 Urgent, ADMISSION SOURCE: Home, TRANSPORT: Walk-in, BED: ED -05. (10:32 SFRE) IMMUNIZATIONS: Flu vaccine up to date, Date of immunization: 03/2016, Pneumococcal vaccine not up to date. (10:33 SFRE) SIRS SCORING: Heart Rate 55-109 (0), Temp range 96.8-101.1 (0), respiratory rate 12-24 (0), Mental Status altered: no (0). (10:33 SFRE) TRIAGE SCREENING: Patient denies suicidal ideation, Patient denies presence of domestic violence. (10:33 SFRE) PROVIDERS: TRIAGE NURSE: Gayatri Bustillo RN. (10:32 SFRE) VITAL SIGNS: BP 134/49, Pulse 70, Resp 18, Temp 98.1, (Oral), O2 Sat 100, on Room Air, Time 09/09/2016 10:30. (10:30 SFRE) PREVIOUS VISIT ALLERGIES: No Known Drug Allergies. (10:32 SFRE) No Known Drug Allergies. (10:33 SFRE) KNOWN ALLERGIES ADVERSE RX TO ULTRAM VOMITS (Unconfirmed) ALLERGIES: (Unconfirmed) FOOD ALLERGIES: (Unconfirmed) LATEX ALLERGY? (Unconfirmed) No Known Allergies (Unconfirmed) No Known Drug Allergies No Known Drug Allergy (Unconfirmed) CURRENT MEDICATIONS acetaZOLAMIDE: TABLET : Strength - 250 mg : ORAL Patient Dose: Oral once a day. (11:15 SFRE) DULoxetine: CAPSULE,DELAYED RELEASE (ENTERIC COATED) : Strength - 20 mg : ORAL Patient Dose: Oral 2 times a day. (11:16 SFRE) busPIRone: TABLET : Strength - 5 mg : ORAL Patient Dose: Oral 2 times a day. (11:16 SFRE) divalproex: TABLET, DELAYED RELEASE (ENTERIC COATED) : Strength - 250 mg : ORAL Patient Dose: Oral 2 times a day. (11:17 SFRE) gabapentin: CAPSULE : Strength - 100 mg : ORAL &a-1R&a+25V*p+0X*z1898K*c202B*c15G*c2P*p-0X&a-25V&a+1R Name: Chrerie Alejandre : 1965 F51 MedRec: [id number] AcctNum: [id number] Prepared: FriSep 09, 2016 15:23 by Interface Page 1 of 6 pMD [facility] EMERGENCY RECORD Patient Dose: Oral 2 times a day. (11:17 SFRE) CAPSULE : Strength - 300 mg : ORAL Patient Dose: Unknown. (11:17 SFRE) Phenergan: TABLET : Strength - 25 mg : ORAL Patient Dose: Oral As Needed. (11:17 SFRE) Protonix: TABLET, DELAYED RELEASE (ENTERIC COATED) : Strength - 40 mg : ORAL Patient Dose: Oral once a day. (11:18 SFRE) VITAL SIGNS (10:30 SFRE) VITAL SIGNS: BP: 134/49, Pulse: 70, Resp: 18, Temp: 98.1 (Oral), O2 sat: 100 on Room Air, Time: 09/09/2016 10:30. NURSING ASSESSMENT: FOCUSED (11:45 SFRE) CONSTITUTIONAL: Patient arrives ambulatory, Gait steady, History obtained from patient, Patient appears, in distress due to pain, Patient cooperative, Patient alert, Oriented to person, place and time, Skin warm, Skin dry, Skin normal in color, Mucous membranes pink, Mucous membranes moist, Patient is well-groomed, Patient complains of ABD PAIN TO RIGHT SIDE, STATES SHE THINKS "SHINGLES". PAIN: aching pain, burning pain, miserable pain, constant, on a scale 0-10 patient rates pain as 10, Pain exacerbated by nothing, Nothing has been tried to alleviate the pain. EYES: Focused eye assessment finding include pupils equally round and reactive to light. NEURO: Focused neuro assessment findings include patient alert, cooperative, No facial droop noted, Speech coherent, no weakness, no numbness, No loss of consciousness. GCS: Eye opening: (4) - Spontaneous, Verbal: (5) - Oriented/conversive, Motor: (6) - Obeys commands/Spontaneous, GCS Total: 15. RESPIRATORY: Focused respiratory assessment findings include breath sounds clear. ABDOMEN: Focused abdominal assessment findings include abdomen soft, tender, no constipation, no diarrhea, no complaint of nausea, no vomiting, Bowel sounds present, Notes: SMALL CIRCULAR RASH NOTED TO ABD. FLESH COLORED ABOUT THE SIZE OF HALF DOLLAR. GENITOURINARY FEMALE: Focused genitourinary assessment not applicable. MUSCULOSKELETAL: Focused musculoskeletal assessment findings include normal range of motion. SAFETY: Side rails up, Cart/Stretcher in lowest position, Family at bedside, Call light within reach, Hospital ID band on. NURSING PROCEDURE: DISCHARGE NOTE (13:06 SFRE) DISCHARGE: Patient discharged to home, ambulating without &a-1R&a+25V*p+0X*u1290I*c202B*c15G*c2P*p-0X&a-25V&a+1R Name: Cherrie Alejandre : 1965 F51 MedRec: [id number] AcctNum: [id number] Prepared: FriSep 09, 2016 15:23 by Interface Page 2 of 6 pMD [facility] EMERGENCY RECORD assistance, driving self, accompanied by //partner, Summary of Care printed/ provided, Patient requested and was provided an electronic copy of Discharge Instructions, Discharge instructions given to patient, Simple or moderate discharge teaching performed, by RADHA MARIEE, F/U WITH PCP. RX DIRECTED. RETURN TO ED NEEDED FOR NEW/CONCERNING OR WORSENING SYMPTOMS., Prescriptions given and instructions on side effects given, Name of prescription(s) given: VALTREX, T3, Above person(s) verbalized understanding of discharge instructions and follow-up care. HPI RASH (12:30 DHAM) CHIEF COMPLAINT: Patient presents for evaluation of rash. HISTORIAN: History provided by patient, History provided by patient's partner, Boyfriend, Pt with onset 24 hours ago of right upper quadrant pain radiating to the right flank. It has been quite severe and constant. She noted the rash in the right upper quadrant this morning. She was in [facility] last week with suspected meningitis and started on steroids, ABX and antiviral for one dose I believe. She was discharged on Diamox with possible pseudotumor or NPH. LOCATION: Symptoms are localized, most severe to right T9 distribution. QUALITY: Rash described as papular, Rash described as raised, Rash described as red, Pain is sharp in nature, described as stabbing. SEVERITY: Current severity of pain rated as 9/10. TIME COURSE: Gradual onset of symptoms, 1, days priror to arrival, Symptoms are worsening, rash this morning. ASSOCIATED WITH: No associated chills, No associated extremity swelling, No associated fever, No associated oral lesions, Associated with pain, for 12 to 24 hours, constant, No associated shortness of breath, No associated scaling, No associated upper respiratory infection. EXACERBATED BY: Patient's condition exacerbated by nothing. RELIEVED BY: Patient's condition relieved by nothing. ROS (12:37 DHAM) CONSTITUTIONAL: Historian denies chills, denies fever, denies lethargy, denies malaise. EYES: Historian denies eye pain, denies eye redness, denies eye discharge, denies photophobia, denies vision changes. ENT: Historian denies rhinorrhea, denies sore throat. CARDIOVASCULAR: Historian denies chest pain, no radiation, Historian denies dyspnea on exertion, denies syncope, denies palpitations. RESPIRATORY: Historian denies cough, denies shortness of breath, denies sputum. GI: Historian reports abdominal pain, reports appetite changes, denies constipation, denies diarrhea, reports nausea, denies vomiting. &a-1R&a+25V*p+0X*r8733C*c202B*c15G*c2P*p-0X&a-25V&a+1R Name: Cherrie Alejandre : 1965 F51 MedRec: [id number] AcctNum: [id number] Prepared: FriSep 09, 2016 15:23 by Interface Page 3 of 6 pMD [facility] EMERGENCY RECORD GENITOURINARY FEMALE: Historian denies dysuria, denies frequency, denies urgency. MUSCULOSKELETAL: Historian denies arthralgias, denies fall, denies injury. SKIN: Historian reports rash. NEUROLOGIC: Historian denies confusion, denies dizziness, denies focal weakness, denies gait changes, denies headache, denies mental status changes, denies paralysis, denies paresthesias. HEMO/LYMPHATIC: Historian denies abnormal blood clotting, denies easy bruising. ALLERGIC/IMMUNOLOGIC: Historian denies eczema, denies frequent infections, denies hives. PAST MEDICAL HISTORY MEDICAL HISTORY: SLEEP APNEA, RA, DIVERTICULITIS, asthma, Notes: fibromyalgia. VERIFIED 08/27/16. (10:33 SFRE) FEMALE SURGICAL HISTORY: cholecystectomy, x 2. UTERINE ABLATION VERIFED 08/27/16. (10:33 SFRE) PSYCHIATRIC HISTORY: Psychiatric history includes, anxiety, none. (10:33 SFRE) SOCIAL HISTORY: Patient denies alcohol use, Patient denies drug use, Patient has no smoking history, Lives at home, with family. (10:33 SFRE) NOTES: HAVE EXAMINED AND AGREE WITH PMHX, SOCIAL HX AND PAST FAMILY HX as noted in nursing docuentation. (12:39 DHAM) PHYSICAL EXAM (12:39 DHAM) CONSTITUTIONAL: Vital signs reviewed, Patient afebrile, Pulse normal, Blood pressure normal, Respiratory rate normal, Patient appears, uncomfortable, Patient appears in pain, in moderate pain distress, Patient alert and oriented to person, place and time. HEAD: Head exam included findings of head atraumatic, normocephalic. EYES: Eye exam included findings of eyelids normal to inspection, Pupils equally round and reactive to light, Extraocular muscles intact, Conjunctiva normal, Eye exam included findings of anterior chamber clear. NECK: Neck exam included findings of normal range of motion, Trachea midline, Thyroid normal, no meningeal signs, no cervical adenopathy, no tenderness. RESPIRATORY CHEST: Respiratory exam included findings of no respiratory distress, Breath sounds clear, No wheezing, No rales, No rhonchi, Breath sounds not diminished. CARDIOVASCULAR: Cardiovascular exam included findings of heart rate regular rate and rhythm, Heart sounds normal, normal S1, normal S2, no murmurs, no rub, no gallop. ABDOMEN FEMALE: Abdominal exam included findings of abdomen tender, to the right upper quadrant, moderate intensity, Bowel sounds normal, Liver normal, Spleen normal, no &a-1R&a+25V*p+0X*e7833H*c202B*c15G*c2P*p-0X&a-25V&a+1R Name: Cherrie Alejandre : 1965 F51 MedRec: [id number] AcctNum: [id number] Prepared: FriSep 09, 2016 15:23 by Interface Page 4 of 6 pMD [facility] EMERGENCY RECORD distension, no mass, no pulsatile masses, no peritoneal signs, no rigidity, no guarding, no rebound, no referred tenderness to the right upper quadrant and the rest of the abdomen is not tender at all. BACK: Back exam included findings of normal inspection, range of motion normal, Tenderness, lightly touching the skin in the R T9 distribution causes pain. UPPER EXTREMITY: Upper extremity exam included findings of inspection normal. LOWER EXTREMITY: Lower extremity exam normal. NEURO: Neuro exam normal, [place] coma scale 15, Neuro exam findings include patient oriented to person, place and time, Speech normal, Gait abnormal, using a walker since last week due to "dizzy spells". SKIN: just below the right costal margin she has a 3x3cm patch of mildly erythematous papules that measure1-2mm each and are discrete from one another. no papules noted but they appear very early in the course and all in the same stage of inflammation and development. no rash on the back and at this time it does not appear to follow a dermatomal pattern. LYMPHATIC: Lymphatic exam normal. PSYCHIATRIC: Psychiatric exam included findings of patient oriented to person place and time, Normal affect, Judgment normal, Insight normal, Remote memory normal, Recent memory normal, Concentration normal. EVENTS TRANSFER: Triage to Emergency Main ED -05. (FriSep 09, 2016 10:32 SFRE) Removed from Emergency Main ED -05. (13:16 SFRE) O2SAT INTERPRETATION (12:39 DHAM) O2SAT: Single pulse oximetry, Oxygen saturation 100%, on room air, Oxygen saturation interpretation: Normal, No intervention required. DOCTOR NOTES (12:50 DHAM) TEXT: As the patient was ill last week and did receive steroids, she is a set up for shingles. He hx may be consistent with this though her exam is not classical. I think delaying tx would worsen her progression so I will start tx with Valtrex and have her f/u with her pcp tomorrow as she already has an appt. considered possible pneumonia or UTI but my index of suspicion for either of these is so low that I don't feel further eval is indicated at this time. PROBLEM LIST No recorded problems DIAGNOSIS (12:54 DHAM) &a-1R&a+25V*p+0X*g3409A*c202B*c15G*c2P*p-0X&a-25V&a+1R Name: Cherrie Alejandre : 1965 F51 MedRec: [id number] AcctNum: [id number] Prepared: FriSep 09, 2016 15:23 by Interface Page 5 of 6 pMD [facility] EMERGENCY RECORD FINAL: PRIMARY: Shingles. DISPOSITION PATIENT: Disposition Type: Discharge, Disposition: *Discharge Home. (12:54 DHAM) Patient left the department. (13:16 SFRE) INSTRUCTION (12:57 DHAM) DISCHARGE: SHINGLES. FOLLOWUP: MD THOMAS, [employer], [facility], [address] [place] [id number], [phone]. SPECIAL: Valtrex 1000mg three times a day for 7 days Tylenol with codeine #3 1-2 every six hours as needed for pain (#10). See your pcp tomorrow as planned and return here as needed for any concerns. PRESCRIPTION Valtrex: TABLET : 1,000 mg : ORAL : Quantity: 1 Unit: tab(s) Route: ORAL Schedule: 3 times a day Dispense: 21 Unit: tab(s) May substitute. Refills: No Refills . (12:59 DHAM) NOTES: No Refills. (12:59 DHAM) acetaminophen-codeine: TABLET : 325 mg-30 mg : ORAL : Quantity: 1-2 Unit: tab(s) Route: ORAL Schedule: every 6 hours PRN Dispense: 10 Unit: tab(s) May substitute. Refills: No Refills . (13:00 DHAM) NOTES: No Refills. (13:00 DHAM) IMAGING *DISCHARGE INSTRUCTIONS RECEIPT: Image [facility] scanner. [facility]13:08 [facility] *SUPPLY CHARGE SHEET: Image captured from scanner. (13:10 [facility]) ADMIN DIGITAL SIGNATURE: RADHA Bustillo Stacey. (13:16 [facility]) MD Wagoner Darren. (15:18 DHA) Evans: KEVIN=MD Wagoner Darren SFRE=RADHA Bustillo Stacey &a-1R&a+25V*p+0X*t7194F*c202B*c15G*c2P*p-0X&a-25V&a+1R Name: Cherrie Alejandre : 1965 F51 MedRec: [id number] AcctNum: [id number] Prepared: FriSep 09, 2016 15:23 by Interface Page 6 of 6 pMD MTDD
== END 2016-09-09 13:05 | disposition home or self-care (01) ==
LOC: MADERS 10:19
DX: B02.9 Zoster without complications (principal); M06.9 Rheumatoid arthritis, unspecified; J45.909 Unspecified asthma, uncomplicated; F41.9 Anxiety disorder, unspecified
CPT/HCPCS: 99282

== ENCOUNTER 2016-12-10 16:46 | Emergency (ER) | payer OTHER ==
[~2016-12-10 16:46] MED LIST changes: -Sodium Chloride 0.9% 500 ML BAG ONE
[2016-12-10] MEDS ORDERED: diphenhydrAMINE HCl 50 MG/ML 1 ML VIAL ONE (18:02)
[2016-12-10] MEDS ORDERED: Metoclopramide HCl 10 MG/2 ML VIAL ONE (18:02)
[2016-12-10] MEDS ORDERED: Ondansetron HCl/PF 4 MG/2 ML Vial ONE (18:02)
[2016-12-10] MEDS ORDERED: Ketorolac Tromethamine 30 MG/ML VIAL ONE ×2 (18:02→18:03)
[2016-12-10 18:22] LABS: #Basophils 0.1 thou/uL (0.0-0.2); #Eosinphils 0.1 thou/uL (0.0-0.7); #Lymphocytes 1.7 thou/uL (1.20-3.40); #Monocytes 0.5 thou/uL (0.11-0.59); #Neutrophils 5.1 thou/uL (1.40-6.50); %Eosinophils 1.2 % (0.0-10.0); %Monocytes 6.8 % (0.0-10.0); %Neutrophils 68.1 % (42.0-75.0); Hemoglobin 13.2 g/dL (12.0-16.0); Mean Corpuscular HGB CONC 33.8 g/dL (32.0-36.0); Mean Corpuscular Hemoglobin 29.8 pg (27.0-31.0); Mean Platelet Volume 8.5 fL (7.4-10.4); Platelet Count 204 thou/uL (130-400); Red Blood Cell (RBC) Count 4.43 mill/uL (4.20-5.40); White Blood Cell (WBC) Count 7.5 thou/uL (4.8-10.8)
[2016-12-10 18:36] LABS: ALT (SGPT) 19 U/L (8-55); AST (SGOT) 13 U/L (5-34); Albumin 3.8 g/dL (3.5-5.0); Alkaline Phosphatase 92 U/L (40-150); Anion Gap 14 mmol/L (10-20); BUN (Urea Nitrogen) 21 mg/dL (7.0-18.7); Bilirubin, Total 0.3 mg/dL (0.2-1.2); Calc. Creatinine Clearance 0 mL/min (70-130); Calcium 9.2 mg/dL (7.8-10.44); Carbon Dioxide 23 mmol/L (22-29); Chloride 106 mmol/L (98-107); Estimated GFR-MDRD 85; Globulin 3.4 g/dL (2.4-3.5); Glucose 102 mg/dL (70-105); Protein, Total 7.2 g/dL (6.0-8.3); Sodium 139 mmol/L (136-145)
[2016-12-10] MEDS ORDERED: Morphine Sulfate 2 MG/ML SYRINGE ONE (19:27)
--- NOTE | 2016-12-10 19:50 | RAD ---
AP VIEW OF THE CHEST: 12/10/16 INDICATION: Headache. COMPARISON: Prior exam dated 07/29/16. IMPRESSION: No acute cardiopulmonary abnormality. POS: [facility]
== END 2016-12-10 20:50 | disposition home or self-care (01) ==
LOC: MADERS 16:46
DX: G44.1 Vascular headache, not elsewhere classified (principal); G43.909 Migraine, unspecified, not intractable, without status migrainosus; J45.909 Unspecified asthma, uncomplicated; F41.9 Anxiety disorder, unspecified; Z79.899 Other long term (current) drug therapy
CPT/HCPCS: 71010; 80053; 83880; 85025; 96361; 96374; 96375; J1200; J1885; J2270; J2405; J2765; J7050

== ENCOUNTER 2017-02-19 21:43 | Emergency (ER) | payer OTHER ==
[2017-02-19 22:30] LABS: #Basophils 0.1 thou/uL (0.0-0.2); #Eosinphils 0.1 thou/uL (0.0-0.7); #Lymphocytes 1.6 thou/uL (1.20-3.40); #Monocytes 0.4 thou/uL (0.11-0.59); #Neutrophils 4.8 thou/uL (1.40-6.50); %Eosinophils 1.8 % (0.0-10.0); %Lymphocytes 22.6 % (21.0-51.0); %Neutrophils 68.5 % (42.0-75.0); Hemoglobin 12.5 g/dL (12.0-16.0); Mean Corpuscular HGB CONC 33.2 g/dL (32.0-36.0); Mean Corpuscular Hemoglobin 28.7 pg (27.0-31.0); Mean Corpuscular Volume 86.5 fl (81.0-99.0); Mean Platelet Volume 8.2 fL (7.4-10.4); Platelet Count 194 thou/uL (130-400); RBC Distribution Width 12.6 % (11.5-14.5); Red Blood Cell (RBC) Count 4.35 mill/uL (4.20-5.40)
[2017-02-19 22:31] LABS: PTT 31.1 SEC (22.9-36.1); Prothrombin Time 13.4 SEC (12.0-14.7)
[2017-02-19] MEDS ORDERED: Metoclopramide HCl 10 MG/2 ML VIAL ONE (22:39)
[2017-02-19] MEDS ORDERED: diphenhydrAMINE HCl 50 MG/ML 1 ML VIAL ONE (22:39)
[2017-02-19] MEDS ORDERED: Benzonatate 100 MG CAP ONE (22:40)
[2017-02-19] MEDS ORDERED: methylPREDNISolone Sod Succ/PF 125 MG/2 ML VIAL ONE (22:40)
[2017-02-19] MEDS ORDERED: Ondansetron HCl/PF 4 MG/2 ML Vial ONE (22:40)
[2017-02-19] MEDS ORDERED: Ketorolac Tromethamine 30 MG/ML VIAL ONE (22:40)
[2017-02-19] MEDS ORDERED: Lorazepam 2 MG/ML VIAL ONE (22:41)
[2017-02-19] MEDS ORDERED: Aspirin 325 MG TAB ONE (22:41)
--- NOTE | 2017-02-19 22:41 | RAD ---
AP VIEW CHEST 02/19/17 HISTORY: Dyspnea. AP view chest obtained on 02/19/17. Comparison to studies from 12/10/16. AP view chest demonstrates the lungs to be well aerated. No evidence of active intrathoracic disease seen. No evidence of effusions, pneumonia or pneumothorax seen. IMPRESSION: Unremarkable AP view chest. POS: [facility]
[2017-02-19] MEDS ORDERED: Dexamethasone 10 MG/ML VIAL ONE (22:42)
[2017-02-19 22:44] LABS: ALT (SGPT) 19 U/L (8-55); AST (SGOT) 13 U/L (5-34); Albumin 3.4 g/dL (3.5-5.0); Alkaline Phosphatase 85 U/L (40-150); Anion Gap 13 mmol/L (10-20); BUN (Urea Nitrogen) 14 mg/dL (7.0-18.7); Bilirubin, Total Less than 0.3 mg/dL (0.2-1.2); Calc. Creatinine Clearance 0 mL/min (70-130); Calcium 9.1 mg/dL (7.8-10.44); Carbon Dioxide 24 mmol/L (22-29); Chloride 108 mmol/L (98-107); Estimated GFR-MDRD 56; Globulin 3.4 g/dL (2.4-3.5); Glucose 130 mg/dL (70-105); Magnesium 1.8 mg/dL (1.6-2.6); Potassium 3.9 mmol/L (3.5-5.1); Protein, Total 6.8 g/dL (6.0-8.3); Sodium 141 mmol/L (136-145)
[2017-02-19 22:48] LABS: CKMB 0.8 ng/mL (0-6.6); Troponin I Less than 0.010 ng/mL (< 0.028)
[2017-02-20] MEDS ORDERED: diphenhydrAMINE HCl 50 MG/ML 1 ML VIAL ONE (00:32)
== END 2017-02-20 01:46 | disposition home or self-care (01) ==
LOC: MADERS 21:43
DX: G43.909 Migraine, unspecified, not intractable, without status migrainosus (principal); F43.0 Acute stress reaction; M06.9 Rheumatoid arthritis, unspecified; J45.909 Unspecified asthma, uncomplicated; F41.9 Anxiety disorder, unspecified
CPT/HCPCS: 71010; 80053; 82553; 83735; 83880; 84484; 85025; 85610; 85730; 93005; 94760; 96361; 96374; 96375; 96376; J1100; J1200; J1885; J2060; J2270; J2405; J2765; J2930; J7050; J7620

== ENCOUNTER 2017-05-21 10:58 | Emergency (ER) | payer OTHER ==
[2017-05-21] MEDS ORDERED: Acetaminophen/Codeine 30-300mg Tablet ONE (12:11)
--- NOTE | 2017-05-21 12:21 | RAD ---
LEFT HIP TWO VIEWS: HISTORY: Pain since Friday without trauma. COMPARISON: Hip radiographs from 2016. FINDINGS: Mild narrowing of the left hip joint. No displaced fracture is appreciated. The superior and infer ior pubic rami appear to be intact. IMPRESSION: No evidence for displaced fracture or malalignment. POS: [facility]
== END 2017-05-21 12:40 | disposition home or self-care (01) ==
LOC: MADERS 10:58
DX: M16.12 Unilateral primary osteoarthritis, left hip (principal); G43.909 Migraine, unspecified, not intractable, without status migrainosus; G47.30 Sleep apnea, unspecified; M06.9 Rheumatoid arthritis, unspecified; J45.909 Unspecified asthma, uncomplicated; F41.9 Anxiety disorder, unspecified; Z79.899 Other long term (current) drug therapy

== ENCOUNTER 2017-06-08 16:55 | Emergency (ER) | payer SELFPAY ==
[2017-06-08] MEDS ORDERED: Morphine 10 MG/ML VIAL ONE ×2 (18:30→19:47)
[2017-06-08] MEDS ORDERED: Ketorolac Tromethamine 60 MG/2 ML VIAL ONE (18:31)
[2017-06-08] MEDS ORDERED: Ondansetron HCl/PF 4 MG/2 ML Vial ONE (18:31)
[2017-06-08] MEDS ORDERED: Ondansetron ODT 4 MG TAB ONE (18:33)
--- NOTE | 2017-06-08 19:20 | RAD ---
PELVIS ONE VIEW: History: Left hip pain. Comparison: None. FINDINGS: No acute fracture. No malalignment. Obturator rings are intact. Pubic symphysis is normal. SI joints are normal. IMPRESSION: No acute abnormality of the left hip. POS: [facility]
--- NOTE | 2017-06-08 19:21 | RAD ---
LEFT HIP TWO VIEWS: History: Pain. Comparison: Pelvic radiograph, today. FINDINGS: No acute fracture or malalignment. Soft tissues are unremarkable. Obturator ring is intact. IMPRESSION: No acute fracture or malalignment. POS: [facility]
== END 2017-06-08 20:20 | disposition home or self-care (01) ==
LOC: MADERS 16:55
DX: M54.42 Lumbago with sciatica, left side (principal); G43.909 Migraine, unspecified, not intractable, without status migrainosus; G47.30 Sleep apnea, unspecified; J45.909 Unspecified asthma, uncomplicated; F41.9 Anxiety disorder, unspecified
CPT/HCPCS: 72170; 96372; J1885; J2270; J2405; Q0162

== ENCOUNTER 2017-07-07 17:05 | Emergency (ER) | payer MEDICAID, SELFPAY ==
[2017-07-07] MEDS ORDERED: methylPREDNISolone Sod Succ/PF 125 MG/2 ML VIAL ONE ×2 (17:50→17:53)
--- NOTE | 2017-07-07 17:51 | RAD ---
CHEST 1 VIEW: Date: 07/07/17 HISTORY: Dyspnea. COMPARISON: 02/19/17. FINDINGS: Limited evaluation due to technique. Lung volumes are diminished, likely due to poor inspiratory effo rt. No masses or consolidation. No pneumothorax or osseous abnormalities. Normal cardiac silhouette. IMPRESSION: No acute cardiopulmonary process. POS: [facility]
[2017-07-07 18:17] LABS: #Basophils 0.1 thou/uL (0.0-0.2); #Eosinphils 0.2 thou/uL (0.0-0.7); #Lymphocytes 2.1 thou/uL (1.20-3.40); #Monocytes 0.5 thou/uL (0.11-0.59); %Basophils 0.8 % (0.0-1.0); %Eosinophils 2.6 % (0.0-10.0); %Lymphocytes 30.5 % (21.0-51.0); %Monocytes 7.4 % (0.0-10.0); %Neutrophils 58.6 % (42.0-75.0); Hemoglobin 12.7 g/dL (12.0-16.0); Mean Corpuscular HGB CONC 32.3 g/dL (32.0-36.0); Mean Corpuscular Hemoglobin 28.5 pg (27.0-31.0); Mean Corpuscular Volume 88.1 fl (81.0-99.0); Platelet Count 210 thou/uL (130-400); RBC Distribution Width 13.4 % (11.5-14.5); Red Blood Cell (RBC) Count 4.45 mill/uL (4.20-5.40); White Blood Cell (WBC) Count 6.8 thou/uL (4.8-10.8)
[2017-07-07 18:31] LABS: ALT (SGPT) 28 U/L (8-55); AST (SGOT) 21 U/L (5-34); Alkaline Phosphatase 93 U/L (40-150); Anion Gap 15 mmol/L (10-20); BUN (Urea Nitrogen) 9 mg/dL (7.0-18.7); Bilirubin, Total Less than 0.3 mg/dL (0.2-1.2); Calc. Creatinine Clearance 0 mL/min (70-130); Carbon Dioxide 26 mmol/L (22-29); Chloride 106 mmol/L (98-107); Estimated GFR-MDRD 85; Glucose 106 mg/dL (70-105); Potassium 3.6 mmol/L (3.5-5.1); Sodium 143 mmol/L (136-145)
[2017-07-07 18:33] LABS: CKMB 1.7 ng/mL (0-6.6); Troponin I 0.014 ng/mL (< 0.028)
== END 2017-07-07 18:50 | disposition home or self-care (01) ==
LOC: MADERS 17:05
DX: J45.901 Unspecified asthma with (acute) exacerbation (principal); G43.909 Migraine, unspecified, not intractable, without status migrainosus; G47.30 Sleep apnea, unspecified; F41.9 Anxiety disorder, unspecified; F32.9 Major depressive disorder, single episode, unspecified; M06.9 Rheumatoid arthritis, unspecified; Z79.899 Other long term (current) drug therapy
CPT/HCPCS: 71010; 80053; 82553; 84484; 85025; 94640; 96374; J2930; J7620

== ENCOUNTER 2017-09-15 10:59 | Emergency (ER) | payer OTHER ==
[2017-09-15] MEDS ORDERED: methylPREDNISolone Sod Succ/PF 125 MG/2 ML VIAL ONE (11:35)
[2017-09-15] MEDS ORDERED: Mag-Al Plus 1200 MG/1200 MG/120 MG/30 ML UDCUP ONE (11:35)
[2017-09-15 11:37] LABS: #Basophils 0.1 thou/uL (0.0-0.2); #Eosinphils 0.3 thou/uL (0.0-0.7); #Lymphocytes 2.4 thou/uL (1.20-3.40); #Monocytes 0.7 thou/uL (0.11-0.59); %Basophils 1.2 % (0.0-1.0); %Eosinophils 2.9 % (0.0-10.0); %Lymphocytes 25.4 % (21.0-51.0); %Monocytes 7.8 % (0.0-10.0); %Neutrophils 62.7 % (42.0-75.0); Hemoglobin 13.9 g/dL (12.0-16.0); Mean Corpuscular HGB CONC 31.9 g/dL (32.0-36.0); Mean Corpuscular Hemoglobin 28.7 pg (27.0-31.0); Mean Platelet Volume 8.5 fL (7.4-10.4); Platelet Count 224 thou/uL (130-400); RBC Distribution Width 13.4 % (11.5-14.5); Red Blood Cell (RBC) Count 4.83 mill/uL (4.20-5.40); White Blood Cell (WBC) Count 9.5 thou/uL (4.8-10.8)
--- NOTE | 2017-09-15 11:40 | RAD ---
PORTABLE CHEST 1 VIEW: Date: 09/15/17 Time: 1112 hours HISTORY: Dyspnea. FINDINGS: Comparison made with exam of 07/07/17. The heart size is normal. No focal areas of consolidation, pneumothorax, or pleural effusions are see n. IMPRESSION: No radiographic evidence of acute cardiopulmonary process. POS: [facility]
[2017-09-15 11:49] LABS: ALT (SGPT) 22 U/L (8-55); AST (SGOT) 13 U/L (5-34); Albumin 3.8 g/dL (3.5-5.0); Alkaline Phosphatase 90 U/L (40-150); Anion Gap 15 mmol/L (10-20); BUN (Urea Nitrogen) 12 mg/dL (7.0-18.7); Bilirubin, Total 0.2 mg/dL (0.2-1.2); Calc. Creatinine Clearance 0 mL/min (70-130); Calcium 9.4 mg/dL (7.8-10.44); Carbon Dioxide 26 mmol/L (22-29); Chloride 104 mmol/L (98-107); Estimated GFR-MDRD Greater than 90; Globulin 3.4 g/dL (2.4-3.5); Glucose 116 mg/dL (70-105); Potassium 3.9 mmol/L (3.5-5.1); Protein, Total 7.2 g/dL (6.0-8.3); Sodium 141 mmol/L (136-145)
[2017-09-15] MEDS ORDERED: Magnesium Sulfate 2 GM/NS 0.9% 50 ML BAG ONE (12:45)
== END 2017-09-15 13:04 | disposition short-term general hospital (02) ==
LOC: MADERS 10:59
DX: J45.901 Unspecified asthma with (acute) exacerbation (principal); G43.909 Migraine, unspecified, not intractable, without status migrainosus; G47.30 Sleep apnea, unspecified; M06.9 Rheumatoid arthritis, unspecified; F41.9 Anxiety disorder, unspecified
CPT/HCPCS: 71045; 80053; 85025; 94640; 96365; 96375; J2930; J3475; J7620

== ENCOUNTER 2017-12-08 18:22 | Emergency (ER) | payer OTHER ==
[2017-12-08] MEDS ORDERED: methylPREDNISolone Sod Succ/PF 125 MG/2 ML VIAL ONE (19:20)
[2017-12-08] MEDS ORDERED: Sterile Water 10 ML ONE (19:21)
== END 2017-12-08 19:35 | disposition home or self-care (01) ==
LOC: MADERS 18:22
DX: J45.909 Unspecified asthma, uncomplicated (principal); G43.909 Migraine, unspecified, not intractable, without status migrainosus; G47.30 Sleep apnea, unspecified; M19.90 Unspecified osteoarthritis, unspecified site; F41.9 Anxiety disorder, unspecified; M06.9 Rheumatoid arthritis, unspecified
CPT/HCPCS: 96372; A4216; J2930; J7620

== ENCOUNTER 2018-04-15 13:14 | Emergency (ER) | payer OTHER ==
[~2018-04-15 13:14] MED LIST changes: +Iopamidol 370 76% 100 ML VIAL ONE
[2018-04-15 13:41] LABS: Bilirubin Negative (Negative); Blood, Urine Negative (Negative); Clarity Hazy (Clear); Glucose, Urine (Dipstick) Negative (Negative); Leukocyte Trace (Negative); Nitrite Negative (Negative); Protein, Urine (Dipstick) Negative (Neg-Trace); Specific Gravity, Urine 1.015 (1.005-1.030); Urobilinogen 0.2 mg/dL (0.2-1.0)
[2018-04-15 13:47] LABS: Bacteria/HPF Rare-Few HPF (None Seen); RBC/HPF None Seen HPF (0-3); WBC/HPF 0-3 HPF (0-3)
[2018-04-15 13:59] LABS: Pregnancy Test - Urine (BHCG) Negative (Negative); Pregu Control Background? CLEAR/WHITE (CLR/WHITE); Pregu Control Bar Appear? YES (CONTROL BAR); Specific Gravity 1.015 (1.002-1.036)
[2018-04-15 13:59] LABS: #Basophils 0.1 thou/uL (0.0-0.2); #Eosinphils 0.2 thou/uL (0.0-0.7); #Lymphocytes 1.9 thou/uL (1.20-3.40); #Monocytes 0.4 thou/uL (0.11-0.59); #Neutrophils 3.7 thou/uL (1.40-6.50); %Eosinophils 3.2 % (0.0-10.0); %Lymphocytes 30.4 % (21.0-51.0); %Monocytes 6.6 % (0.0-10.0); %Neutrophils 58.9 % (42.0-75.0); Hemoglobin 14.1 g/dL (12.0-16.0); Mean Corpuscular HGB CONC 32.5 g/dL (32.0-36.0); Mean Corpuscular Hemoglobin 28.6 pg (27.0-31.0); Mean Platelet Volume 7.8 fL (7.4-10.4); Platelet Count 230 thou/uL (130-400); Red Blood Cell (RBC) Count 4.91 mill/uL (4.20-5.40); White Blood Cell (WBC) Count 6.3 thou/uL (4.8-10.8)
[2018-04-15 14:15] LABS: ALT (SGPT) 76 U/L (8-55); AST (SGOT) 43 U/L (5-34); Albumin 4.1 g/dL (3.5-5.0); Alkaline Phosphatase 136 U/L (40-150); Anion Gap 13 mmol/L (10-20); BUN (Urea Nitrogen) 10 mg/dL (7.0-18.7); Bilirubin, Total 0.5 mg/dL (0.2-1.2); Calc. Creatinine Clearance 0 mL/min (70-130); Calcium 9.7 mg/dL (7.8-10.44); Carbon Dioxide 29 mmol/L (22-29); Chloride 103 mmol/L (98-107); Estimated GFR-MDRD 89; Globulin 3.5 g/dL (2.4-3.5); Glucose 93 mg/dL (70-105); Lipase 16 U/L (8-78); Potassium 4.4 mmol/L (3.5-5.1); Protein, Total 7.6 g/dL (6.0-8.3); Sodium 141 mmol/L (136-145)
[2018-04-15] MEDS ORDERED: Pantoprazole 40 MG VIAL ONE (14:22)
[2018-04-15] MEDS ORDERED: Ketorolac Tromethamine 30 MG/ML VIAL ONE (14:22)
[2018-04-15] MEDS ORDERED: Ondansetron HCl/PF 4 MG/2 ML Vial ONE (14:22)
[2018-04-15] MEDS ORDERED: Morphine 4 MG/ML VIAL ONE ×2 (14:53→15:34)
--- NOTE | 2018-04-15 16:44 | CT ---
ABDOMEN CT WITH CONTRAST PELVIC CT WITH CONTRAST 04/15/18 COMPARISON: 02/15/18. HISTORY: Left upper quadrant pain. Fibromyalgia. Uterine ablation. TECHNIQUE: An abdomen and pelvic CT are performed with IV contrast. Enteric contrast is not administered. Adame l reformatted images are submitted for interpretation. FINDINGS: ABDOMEN CT: Lung bases are clear. Normal heart size. No pericardial effusion. The descending thoracic aorta and a bdominal aorta have a normal caliber. No periaortic fat stranding. Heterogeneous hypoattenuation of the liver due to hepatic steatosis with patchy areas of fatty sparin g. Gallbladder is surgically absent. Portal vein is patent. The spleen, pancreas, and adrenal glands have appropriate enhancement. No gastrohepatic, retrocrural or periportal lymphadenopathy. No mesenteric mass, lymphadenopathy, free air or free fluid. Symmetric enhancement of the kidneys. Bilaterally, no obstructive uropathy. Uterus and adnexal structures are grossly unremarkable. Limited evaluation of the alimentary canal. No evidence of bowel obstruction. Normal caliber appendix . There is evidence of diverticulosis, without evidence of diverticulosis, without evidence of divert iculitis. PELVIC CT: Decompression of the urinary bladder. No pelvic mass, lymphadenopathy, free air or free fluid. No lyt ic or blastic lesions in the osseous structures. IMPRESSION: 1. No acute abnormality in the abdomen or pelvis. 2. Normal caliber appendix. 3. Hepatic steatosis. 4. Diverticulosis, without evidence of diverticulitis. POS: [facility]
== END 2018-04-15 17:04 | disposition home or self-care (01) ==
LOC: MADERS 13:14
DX: R10.10 Upper abdominal pain, unspecified (principal); G47.30 Sleep apnea, unspecified; M19.90 Unspecified osteoarthritis, unspecified site; J45.909 Unspecified asthma, uncomplicated; G43.909 Migraine, unspecified, not intractable, without status migrainosus; F41.9 Anxiety disorder, unspecified; Z79.899 Other long term (current) drug therapy
CPT/HCPCS: 36415; 74177; 80053; 81003; 81015; 81025; 83690; 85025; 93005; 96361; 96374; 96375; 96376; C9113; J1885; J2270; J2405; J7050

== ENCOUNTER 2018-06-26 14:15 | Emergency (ER) | payer OTHER ==
[2018-06-26] MEDS ORDERED: Dexamethasone 4 mg/ml Vial ONE (14:36)
[2018-06-26] MEDS ORDERED: Dexamethasone 4 MG TAB ONE (14:37)
[2018-06-26 14:51] LABS: Bilirubin Negative (Negative); Blood, Urine Negative (Negative); Clarity Clear (Clear); Glucose, Urine (Dipstick) Negative (Negative); Leukocyte Negative (Negative); Nitrite Negative (Negative); Protein, Urine (Dipstick) Negative (Neg-Trace); Specific Gravity, Urine 1.003 (1.002-1.036); Urobilinogen 0.2 mg/dL (0.2-1.0)
== END 2018-06-26 16:09 | disposition home or self-care (01) ==
LOC: MADERS 14:15
DX: J45.901 Unspecified asthma with (acute) exacerbation (principal); J02.9 Acute pharyngitis, unspecified; G43.909 Migraine, unspecified, not intractable, without status migrainosus; G47.30 Sleep apnea, unspecified; M19.90 Unspecified osteoarthritis, unspecified site; M06.9 Rheumatoid arthritis, unspecified; Z79.899 Other long term (current) drug therapy
CPT/HCPCS: 81003; 87081; 87086; 87430; 99283; J1100; J7620; J8540

== ENCOUNTER 2018-07-21 16:05 | Emergency (ER) | payer OTHER ==
[2018-07-21] MEDS ORDERED: Ibuprofen 800 MG TAB ONE (16:52)
== END 2018-07-21 16:58 | disposition home or self-care (01) ==
LOC: MADERS 16:05
DX: B34.9 Viral infection, unspecified (principal); G43.909 Migraine, unspecified, not intractable, without status migrainosus; G47.30 Sleep apnea, unspecified; J45.909 Unspecified asthma, uncomplicated; F41.9 Anxiety disorder, unspecified; Z79.899 Other long term (current) drug therapy
CPT/HCPCS: 87804; 99284

== ENCOUNTER 2018-08-05 19:59 | Emergency (ER) | payer OTHER ==
[2018-08-05] MEDS ORDERED: methylPREDNISolone Sod Succ/PF 125 MG/2 ML VIAL ONE (20:35)
[2018-08-05] MEDS ORDERED: diphenhydrAMINE 50 MG/ML VIAL ONE (20:35)
[2018-08-05] MEDS ORDERED: Metoclopramide HCl 10 MG/2 ML VIAL ONE (20:35)
[2018-08-05] MEDS ORDERED: Sodium Chloride 0.9% 500 ML ONE (20:38)
[2018-08-05] MEDS ORDERED: Mag-Al Plus 1200 MG/1200 MG/120 MG/30 ML UDCUP ONE (20:38)
[2018-08-05] MEDS ORDERED: Lidocaine Viscous Sol 2% 15 ml UD Cup ONE (20:38)
[2018-08-05 21:03] LABS: #Basophils 0.1 thou/uL (0.0-0.2); #Eosinphils 0.1 thou/uL (0.0-0.7); #Lymphocytes 0.7 thou/uL (1.20-3.40); #Monocytes 0.9 thou/uL (0.11-0.59); #Neutrophils 6.5 thou/uL (1.40-6.50); %Eosinophils 1.1 % (0.0-10.0); %Lymphocytes 8.1 % (21.0-51.0); %Monocytes 10.7 % (0.0-10.0); %Neutrophils 79.1 % (42.0-75.0); Hemoglobin 14.3 g/dL (12.0-16.0); Mean Corpuscular HGB CONC 32.7 g/dL (32.0-36.0); Mean Corpuscular Volume 88.6 fL (78.0-98.0); Mean Platelet Volume 8.1 fL (7.4-10.4); Platelet Count 181 thou/uL (130-400); Red Blood Cell (RBC) Count 4.92 mill/uL (4.20-5.40); White Blood Cell (WBC) Count 8.2 thou/uL (4.8-10.8)
[2018-08-05 21:15] LABS: ALT (SGPT) 104 U/L (8-55); AST (SGOT) 66 U/L (5-34); Albumin 4.3 g/dL (3.5-5.0); Alkaline Phosphatase 127 U/L (40-150); Anion Gap 15 mmol/L (10-20); BUN (Urea Nitrogen) 10 mg/dL (7.0-18.7); Bilirubin, Total 0.4 mg/dL (0.2-1.2); Calc. Creatinine Clearance 0 mL/min (70-130); Calcium 9.8 mg/dL (7.8-10.44); Carbon Dioxide 26 mmol/L (22-29); Chloride 101 mmol/L (98-107); Estimated GFR-MDRD 87; Globulin 3.8 g/dL (2.4-3.5); Glucose 114 mg/dL (70-105); Lipase 9 U/L (8-78); Potassium 3.7 mmol/L (3.5-5.1); Protein, Total 8.1 g/dL (6.0-8.3); Sodium 138 mmol/L (136-145)
--- NOTE | 2018-08-05 21:36 | RAD ---
EXAM: CHEST ONE VIEW: 08/05/18 HISTORY: 52-year-old female with history of headaches, cough, nausea, vomiting and diarrhea. COMPARISON: 09/15/17. FINDINGS: Heart size is borderline enlarged. No confluent pneumonia, overt edema, or pleural effusion. IMPRESSION: Minimal cardiomegaly without other significant acute process. Large body habitus somewhat lowers the sensitivity of the study. POS: [facility]
[2018-08-05] MEDS ORDERED: Acetaminophen 500 MG TAB ONE (22:04)
--- NOTE | 2018-08-05 22:21 | CT ---
BRAIN CT WITHOUT IV CONTRAST: 08/05/18 HISTORY: 52-year-old female with history of headache, nausea, vomiting and diarrhea. COMPARISON: 02/23/17. FINDINGS: Minimal motion artifact to the lower scan slice levels. No focal mass or midline shift. There is some generalized enlargement of the lateral ventricles bilaterally but no significant change from prior study. There are some sinus mucosal changes involving the ethmoid and sphenoid sinuses. IMPRESSION: No mass or bleed. There is some generalized stable enlargement of the lateral ventricles bilaterally. Sinus mucosal disease. No significant other acute process. POS: [facility]
== END 2018-08-05 22:15 | disposition home or self-care (01) ==
LOC: MADERS 19:59
DX: R51 Headache (principal); R11.2 Nausea with vomiting, unspecified; M19.90 Unspecified osteoarthritis, unspecified site; J45.909 Unspecified asthma, uncomplicated; F41.9 Anxiety disorder, unspecified; Z79.891 Long term (current) use of opiate analgesic; Z79.899 Other long term (current) drug therapy
CPT/HCPCS: 70450; 71045; 80053; 83690; 85025; 93005; 96361; 96374; 96375; J1200; J2765; J2930; J7050

== ENCOUNTER 2018-08-31 11:56 | Emergency (ER) | payer OTHER ==
[2018-08-31 12:51] LABS: #Eosinphils 0.2 thou/uL (0.0-0.7); #Lymphocytes 1.5 thou/uL (1.20-3.40); #Monocytes 0.6 thou/uL (0.11-0.59); #Neutrophils 4.2 thou/uL (1.40-6.50); %Basophils 0.6 % (0.0-1.0); %Eosinophils 2.3 % (0.0-10.0); %Lymphocytes 22.4 % (21.0-51.0); %Monocytes 9.8 % (0.0-10.0); %Neutrophils 64.8 % (42.0-75.0); Hemoglobin 13.4 g/dL (12.0-16.0); Mean Corpuscular HGB CONC 32.1 g/dL (32.0-36.0); Mean Corpuscular Hemoglobin 29.3 pg (27.0-31.0); Mean Corpuscular Volume 91.5 fL (78.0-98.0); Mean Platelet Volume 8.4 fL (7.4-10.4); Platelet Count 161 thou/uL (130-400); Red Blood Cell (RBC) Count 4.58 mill/uL (4.20-5.40); White Blood Cell (WBC) Count 6.5 thou/uL (4.8-10.8)
[2018-08-31 13:08] LABS: ALT (SGPT) 70 U/L (8-55); AST (SGOT) 32 U/L (5-34); Alkaline Phosphatase 124 U/L (40-150); Anion Gap 15 mmol/L (10-20); BUN (Urea Nitrogen) 13 mg/dL (9.8-20.1); Bilirubin, Total 0.7 mg/dL (0.2-1.2); Calc. Creatinine Clearance 0 mL/min (70-130); Calcium 9.3 mg/dL (7.8-10.44); Carbon Dioxide 30 mmol/L (22-29); Chloride 103 mmol/L (98-107); Estimated GFR-MDRD 75; Globulin 3.3 g/dL (2.4-3.5); Glucose 118 mg/dL (70-105); Potassium 3.9 mmol/L (3.5-5.1); Protein, Total 7.3 g/dL (6.0-8.3); Sodium 144 mmol/L (136-145)
== END 2018-08-31 13:54 | disposition home or self-care (01) ==
LOC: MADERS 11:56
DX: M79.605 Pain in left leg (principal); G43.909 Migraine, unspecified, not intractable, without status migrainosus; G47.00 Insomnia, unspecified; J45.909 Unspecified asthma, uncomplicated; F41.9 Anxiety disorder, unspecified; Z79.899 Other long term (current) drug therapy
CPT/HCPCS: 80053; 83880; 84484; 85025; 85379; 93005

== ENCOUNTER 2019-05-08 00:52 | Emergency (ER) | payer OTHER ==
[2019-05-08] MEDS ORDERED: Naproxen 500 MG TAB ONE (01:40)
[2019-05-08] MEDS ORDERED: HYDROcodone/Acetaminophen 5/325 mg Tablet ONE (01:40)
--- NOTE | 2019-05-08 11:01 | RAD ---
THREE VIEWS LEFT ANKLE: HISTORY: Left ankle pain. COMPARISON: None. FINDINGS: The ankle mortise is congruent. No fracture or dislocation is seen. There is a corticated osseous d ensity adjacent the medial malleolus probably related to an accessory center of ossification versus a remote avulsion injury. Plantar calcaneal enthesophyte is identified. Subcutaneous soft tissue swe lling is seen at the lateral aspect of the ankle as well as anteriorly. Except for some soft tissue swelling, the ankle is overall stable when compared to views of the left ankle on 08/26/2013. IMPRESSION: Subcutaneous soft tissue swelling without evidence of an acute osseous abnormality. POS: [facility]
== END 2019-05-08 02:10 | disposition home or self-care (01) ==
LOC: MADERS 00:52
DX: S93.402A Sprain of unspecified ligament of left ankle, initial encounter (principal); G43.909 Migraine, unspecified, not intractable, without status migrainosus; G47.30 Sleep apnea, unspecified; M06.9 Rheumatoid arthritis, unspecified; M19.90 Unspecified osteoarthritis, unspecified site; J45.909 Unspecified asthma, uncomplicated; M79.7 Fibromyalgia; F41.9 Anxiety disorder, unspecified; Z79.899 Other long term (current) drug therapy; X50.1XXA Overexertion from prolonged static or awkward postures, initial encounter

== ENCOUNTER 2019-06-11 08:59 | Emergency (ER) | payer OTHER ==
[2019-06-11] MEDS ORDERED: Ondansetron ODT 4 MG TAB ONE (09:29)
[2019-06-11 10:10] LABS: Bilirubin Negative (Negative); Blood, Urine Small (Negative); Clarity Cloudy (Clear); Glucose, Urine (Dipstick) Negative (Negative); Leukocyte Large (Negative); Nitrite Negative (Negative); Protein, Urine (Dipstick) Trace mg/dL (Neg-Trace)
[2019-06-11 10:17] LABS: RBC/HPF 0-3 HPF (0-3); WBC/HPF Greater than 50 HPF (0-3)
[2019-06-11 10:18] LABS: Bacteria/HPF 1+ HPF (None Seen); Squamous Epithelial 0-3 HPF (0-3)
[2019-06-11] MEDS ORDERED: Phenazopyridine HCl 97.5 MG TABLET ONE (10:26)
[2019-06-11] MEDS ORDERED: cefTRIAXone\\ROCEPHIN 1 GM VIAL ONE (10:27)
[2019-06-11] MEDS ORDERED: Lidocaine 1% 20 ML MDV ONE (10:27)
== END 2019-06-11 10:56 | disposition home or self-care (01) ==
LOC: MADERS 08:59
DX: N12 Tubulo-interstitial nephritis, not specified as acute or chronic (principal); R11.2 Nausea with vomiting, unspecified; G43.909 Migraine, unspecified, not intractable, without status migrainosus; G47.30 Sleep apnea, unspecified; M06.9 Rheumatoid arthritis, unspecified; M19.90 Unspecified osteoarthritis, unspecified site; J45.909 Unspecified asthma, uncomplicated; M79.7 Fibromyalgia; F41.9 Anxiety disorder, unspecified; Z79.899 Other long term (current) drug therapy
CPT/HCPCS: 81003; 81015; 87077; 87086; 87186; 96372; 99283; J0696; J2001; Q0162

== ENCOUNTER 2019-10-11 19:05 | Emergency (ER) | payer OTHER ==
--- NOTE | 2019-10-11 19:30 | RAD ---
Portable frontal chest radiograph: 10/11/2019 COMPARISON: 08/05/2018 HISTORY: Chest pain FINDINGS: Lungs are clear. Heart and mediastinal contours appear within normal limits. Stable mild pu lmonary vascular congestion. Shallow inspiration limits detailed assessment. IMPRESSION: No focal consolidation or alveolar edema.
[2019-10-11 19:34] LABS: #Basophils 0.1 thou/uL (0.0-0.2); #Eosinphils 0.1 thou/uL (0.0-0.7); #Lymphocytes 2.5 thou/uL (1.20-3.40); #Monocytes 0.8 thou/uL (0.11-0.59); #Neutrophils 4.2 thou/uL (1.40-6.50); %Basophils 0.9 % (0.0-1.0); %Eosinophils 1.8 % (0.0-10.0); %Lymphocytes 32.4 % (21.0-51.0); %Monocytes 10.6 % (0.0-10.0); %Neutrophils 54.4 % (42.0-75.0); Hemoglobin 13.8 g/dL (12.0-16.0); Mean Corpuscular HGB CONC 31.2 g/dL (32.0-36.0); Mean Corpuscular Hemoglobin 28.5 pg (27.0-31.0); Mean Corpuscular Volume 91.5 fL (78.0-98.0); Mean Platelet Volume 8.5 fL (7.4-10.4); Platelet Count 220 thou/uL (130-400); RBC Distribution Width 12.4 % (11.5-14.5); Red Blood Cell (RBC) Count 4.84 mill/uL (4.20-5.40); White Blood Cell (WBC) Count 7.7 thou/uL (4.8-10.8)
[2019-10-11 19:56] LABS: ALT (SGPT) 31 U/L (8-55); AST (SGOT) 17 U/L (5-34); Albumin 3.9 g/dL (3.5-5.0); Alkaline Phosphatase 106 U/L (40-110); Anion Gap 14 mmol/L (10-20); BUN (Urea Nitrogen) 11 mg/dL (9.8-20.1); Bilirubin, Total Less than 0.2 mg/dL (0.2-1.2); Calc. Creatinine Clearance 0 mL/min (70-130); Carbon Dioxide 26 mmol/L (22-29); Chloride 105 mmol/L (98-107); Estimated GFR-MDRD Greater than 90; Globulin 3.4 g/dL (2.4-3.5); Glucose 112 mg/dL (70-105); Potassium 3.7 mmol/L (3.5-5.1); Protein, Total 7.3 g/dL (6.0-8.3); Sodium 141 mmol/L (136-145)
== END 2019-10-11 23:35 | disposition home or self-care (01) ==
LOC: MADERS 19:05
DX: R07.9 Chest pain, unspecified (principal); F41.9 Anxiety disorder, unspecified; G47.30 Sleep apnea, unspecified; G43.909 Migraine, unspecified, not intractable, without status migrainosus; J45.909 Unspecified asthma, uncomplicated; M19.90 Unspecified osteoarthritis, unspecified site; Z79.899 Other long term (current) drug therapy; Z79.891 Long term (current) use of opiate analgesic
CPT/HCPCS: 36415; 71045; 80053; 83880; 84484; 85025; 93005; 94760

== ENCOUNTER 2020-01-07 07:54 | Outpatient (CLI) | payer OTHER ==
--- NOTE | 2020-01-07 08:39 | ULT ---
Exam: Pelvic ultrasound HISTORY: Left adnexal pelvic pain. History of prior large cyst removal left ovary. COMPARISON: None TECHNIQUE: Multiple grayscale and color Doppler images were obtained in a transabdominal and transvag inal pelvic ultrasound. FINDINGS: CERVIX: Small nabothian cysts. UTERUS: Shadowing limits adequate evaluation of the uterus. No gross mass or lesion is seen involving the uterus. ENDOMETRIAL STRIPE: Not well visualized on this exam. Small amount of fluid is seen in the endometria l canal. This would be abnormal in a postmenopausal female patient. The endometrial stripe where seen measures 0.4 cm in thickness. No free fluid is present. RIGHT OVARY: Not visualized. No adnexal mass is appreciated on this exam. LEFT OVARY: Not visualized. No adnexal mass is appreciated on this exam. IMPRESSION: 1. Small amount of fluid within the endometrial canal. This would be abnormal in a postmenopausal fem enrike patient. 2. Nonvisualization of the bilateral ovaries.
== END 2020-01-07 07:55 | disposition home or self-care (01) ==
LOC: MADULT 07:54
PROVIDERS: ATTEND Family Medicine
DX: R10.12 Left upper quadrant pain (principal); N83.202 Unspecified ovarian cyst, left side
CPT/HCPCS: 76856

== ENCOUNTER 2021-03-19 11:36 | Outpatient (CLI) | payer OTHER ==
[2021-03-19 12:21] LABS: #Basophils 0.1 thou/uL (0.0-0.2); #Eosinphils 0.2 thou/uL (0.0-0.7); #Lymphocytes 2.1 thou/uL (1.20-3.40); #Monocytes 0.6 thou/uL (0.11-0.59); #Neutrophils 3.5 thou/uL (1.40-6.50); %Basophils 1.5 % (0.0-1.0); %Eosinophils 3.4 % (0.0-10.0); %Lymphocytes 32.4 % (21.0-51.0); %Monocytes 8.5 % (0.0-10.0); %Neutrophils 54.2 % (42.0-75.0); Hemoglobin 13.5 g/dL (12.0-16.0); Mean Corpuscular HGB CONC 30.9 g/dL (32.0-36.0); Mean Corpuscular Hemoglobin 27.8 pg (27.0-31.0); Mean Corpuscular Volume 90.2 fL (78.0-98.0); Mean Platelet Volume 9.1 fL (7.4-10.4); Platelet Count 201 thou/uL (130-400); RBC Distribution Width 13.2 % (11.5-14.5); Red Blood Cell (RBC) Count 4.83 mill/uL (4.20-5.40); White Blood Cell (WBC) Count 6.5 thou/uL (4.8-10.8)
[2021-03-19 12:54] LABS: ALT (SGPT) 42 U/L (8-55); AST (SGOT) 31 U/L (5-34); Albumin 3.9 g/dL (3.5-5.0); Alkaline Phosphatase 88 U/L (40-110); Anion Gap 13 mmol/L (10-20); BUN (Urea Nitrogen) 13 mg/dL (9.8-20.1); Bilirubin, Total 0.5 mg/dL (0.2-1.2); Calc. Creatinine Clearance 0 mL/min (70-130); Calcium 9.4 mg/dL (7.8-10.44); Carbon Dioxide 27 mmol/L (22-29); Chloride 106 mmol/L (98-107); Globulin 3.4 g/dL (2.4-3.5); Glucose 96 mg/dL (70-105); Potassium 4.2 mmol/L (3.5-5.1); Protein, Total 7.3 g/dL (6.0-8.3); Sodium 142 mmol/L (136-145)
[2021-03-19 12:55] LABS: Bilirubin Negative (Negative); Blood, Urine Negative (Negative); Clarity Clear (Clear); Glucose, Urine (Dipstick) Negative (Negative); Ketone, Urine Negative (Negative); Leukocyte Negative (Negative); Nitrite Negative (Negative); Protein, Urine (Dipstick) Negative (Neg-Trace); Urobilinogen 0.2 mg/dL (Less than 2)
[2021-03-19 13:04] LABS: RBC/HPF 0-3 HPF (0-3); Specific Gravity, Urine 1.024 (1.002-1.036)
[2021-03-19 15:30] LABS: INR-International Normal Ratio 0.9; Prothrombin Time 12.5 sec (12.0-14.7)
== END 2021-03-19 11:37 | disposition home or self-care (01) ==
LOC: MADLAB 11:36
PROVIDERS: ATTEND Family Medicine
DX: Z01.818 Encounter for other preprocedural examination (principal)
CPT/HCPCS: 36415; 71046; 80053; 81001; 85025; 85610; 87086

== ENCOUNTER 2022-01-31 13:54 | Emergency (ER) | payer OTHER | END 2022-01-31 15:10 | disposition home or self-care (01) | LOC: MADERS 13:54 | DX: H61.23 Impacted cerumen, bilateral (principal); J45.909 Unspecified asthma, uncomplicated; G47.30 Sleep apnea, unspecified; M19.90 Unspecified osteoarthritis, unspecified site; M79.7 Fibromyalgia; M06.9 Rheumatoid arthritis, unspecified; Z79.899 Other long term (current) drug therapy; Z87.19 Personal history of other diseases of the digestive system | CPT/HCPCS: 99283 ==

== ENCOUNTER 2024-05-03 12:01 | Emergency (ER) | payer MEDICAID ==
[2024-05-03] MEDS ORDERED: HYDROcodone/Acetaminophen 5/325 mg Tablet ONE (14:01)
== END 2024-05-03 16:25 | disposition home or self-care (01) ==
LOC: MADERS 12:01
DX: S09.90XA Unspecified injury of head, initial encounter (principal); S93.402A Sprain of unspecified ligament of left ankle, initial encounter; S80.211A Abrasion, right knee, initial encounter; W01.198A Fall on same level from slipping, tripping and stumbling with subsequent striking against other object, initial encounter
CPT/HCPCS: 70450; 71045; 72125

== ENCOUNTER 2025-03-28 12:51 | Emergency (ER) | payer OTHER | END 2025-03-28 14:00 | disposition home or self-care (01) | LOC: MADERS 12:51 | DX: J06.9 Acute upper respiratory infection, unspecified (principal); E66.9 Obesity, unspecified | CPT/HCPCS: 99283 ==